=== PATIENT | male | born 1945 | race African-American/Black ===

== ENCOUNTER → 2017-06-12 | Outpatient (CLI) | payer MEDICARE, OTHER ==
[2017-06-12 11:00] LABS: HEMOGLOBIN 12.9 G/DL (13.3-17.7); MEAN PLATELET VOLUME 12.2 FL (7.4-10.4); RED BLOOD COUNT 5.17 10^6/uL (4.35-5.85); RED CELL DISTRIBUTION WIDTH 15.7 % (10.0-14.5); WHITE BLOOD COUNT 4.1 10^3/uL (4.3-11.0)
[2017-06-12 11:16] LABS: ALANINE AMINOTRANSFERASE 14 U/L (0-55); ALKALINE PHOSPHATASE 59 U/L (40-136); BILIRUBIN,TOTAL 0.4 MG/DL (0.1-1.0); BUN/CREATININE RATIO 10; CARBON DIOXIDE 29 MMOL/L (21-32); CHLORIDE 101 MMOL/L (98-107); CHOLESTEROL 150 MG/DL (< 200); CREATININE SERUM 0.97 MG/DL (0.60-1.30); GFR ESTIMATED > 60; GLUCOSE 97 MG/DL (70-105); HDL CHOLESTEROL 60 MG/DL (40-60); POTASSIUM 2.8 MMOL/L (3.6-5.0); SODIUM 141 MMOL/L (135-145); TOTAL PROTEIN 6.9 GM/DL (6.4-8.2); TRIGLYCERIDES 58 MG/DL (<150); VLDL CHOLESTEROL 12 MG/DL (5-40)
--- NOTE | 2017-06-12 11:47 | Diagnostic Imaging Report ---
INDICATION: Peripheral edema. FINDINGS: Hepatic flexure of the colon is superimposed between the liver and diaphragm. Heart size and pulmonary vascularity are normal. Lungs are clear. There are no effusions or pneumothoraces. IMPRESSION: No acute abnormalities in the chest. Dictated by: Dictated on workstation # [id number]
== END ==
LOC: RAD 10:35
PROVIDERS: ATTEND Family Medicine
DX: G30.9 Alzheimer's disease, unspecified (principal); F02.80 Dementia in other diseases classified elsewhere, unspecified severity, without behavioral disturbance, psychotic disturbance, mood disturbance, and anxiety; E78.5 Hyperlipidemia, unspecified; E03.9 Hypothyroidism, unspecified; R60.9 Edema, unspecified
CPT/HCPCS: 36415; 71046; 80053; 80061; 83880; 84443; 85027

== ENCOUNTER → 2017-06-26 | Outpatient (CLI) | payer MEDICARE, OTHER ==
--- NOTE | 2017-06-26 10:44 | Diagnostic Imaging Report ---
PROCEDURE: US right lower extremity venous. TECHNIQUE: Multiple real-time grayscale images were obtained over the right lower extremity in various projections. Additional duplex Doppler and color Doppler images were also obtained. INDICATION: Right leg swelling. EXAMINATION: Grayscale and color Doppler evaluation of the deep veins of the right lower extremity were performed with waveform analysis. FINDINGS: Continuous venous flow is present. No intraluminal filling defect is identified. There is normal compressibility and response to augmentation. No abnormal perivascular fluid collection is identified. IMPRESSION: No ultrasound evidence of right lower extremity deep venous thrombosis. Dictated by: Dictated on workstation # [id number]
--- NOTE | 2017-06-26 10:55 | Diagnostic Imaging Report ---
PROCEDURE: CT head without contrast. TECHNIQUE: Multiple contiguous axial images were obtained through the brain without the use of intravenous contrast. INDICATION: Altered mental status. Comparison is made with prior CT brain from 07/05/2011. FINDINGS: Since the prior study, there has been some increase in ventricular prominence particularly involving the lateral and third ventricles. Sulci are prominent as well and findings may be on the basis of progressing cerebral atrophy. Normal pressure hydrocephalus cannot be entirely excluded. There is no midline shift. No sulcal effacement is seen. No acute intra-axial or extra-axial hemorrhage is detected. Cisterns are patent. Visualized paranasal sinuses are clear. IMPRESSION: Increasing prominence of the ventricles and sulci when compared with prior CT from June 2011, considerations above. No acute intracranial hemorrhage is detected. Dictated by: Dictated on workstation # [id number]
== END ==
LOC: RAD 10:05
PROVIDERS: ATTEND Family Medicine
DX: M79.89 Other specified soft tissue disorders (principal); R41.82 Altered mental status, unspecified
CPT/HCPCS: 70450

== ENCOUNTER → 2017-08-02 | Outpatient (CLI) | payer MEDICARE, OTHER ==
[~2017-08-02] MED LIST: CHOL20003 PO; DONE10TA41 PO; KCL 20 MEQ POWDER FOR ORAL SOLUTION PO ONE; LEVO88TA54 PO; MEMA28CA PO; POTA10TA10 PO; POTA40LI PO; POTASSIUM CL 10 MEQ/50 ML IVPB (PRE-MIX) IV SCH; PRAV40TA2 PO
[2017-08-02 13:00] VITALS: BP 144/78
--- NOTE | 2017-08-07 09:31 | Physician Query-Final Dx ---
JAMES PADRON 08/07/17 0931: Clinic Account Progress/Dx Physician Query: Please give a diagnosis for the KCL 60 mg treatment thank you Date of Service Aug 02, 2017 at 12:49 BORIS KING DO 08/07/17 1234: Clinic Account Progress/Dx DIAGNOSIS: Diagnosis Hypokalemia severe JAMES PADRON Aug 07, 2017 09:31 BORIS KING DO Aug 07, 2017 12:34
== END ==
LOC: SDC 12:49
PROVIDERS: ATTEND Family Medicine
DX: E87.6 Hypokalemia (principal)
CPT/HCPCS: 99211

== ENCOUNTER 2017-08-03 05:17 | Inpatient (IN) | payer MEDICARE, OTHER ==
[~2017-08-03] VITALS: Ht 170.2 cm; Wt 78.0 kg
--- OUTSIDE RECORDS SUMMARY | 2017-08-03 05:23 | XMS REPORT | Continuity of Care Document ---
Author Author [facility] Organization [facility] Address Unknown Phone Unavailable Allergies There is no data. Medications There is no data. 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 06/12/2017 ALLAN HOWARD MD Ot 787.02 NAUSEA ALONE 06/12/2017 GELLENDER DO, BORIS Yuen Ot 573.8 LIVER DISORDERS NEC 06/12/2017 GELLENDER DO, BORIS Yuen Ot E03.9 HYPOTHYROIDISM, UNSPECIFIED 06/12/2017 GELLENDER DO, BORIS Yuen Ot E78.2 MIXED HYPERLIPIDEMIA 06/13/2017 GELLENDER DO, BORIS Yuen Ot E03.9 HYPOTHYROIDISM, UNSPECIFIED 06/13/2017 GELLENDER DO, BORIS Yuen Ot E78.5 HYPERLIPIDEMIA, UNSPECIFIED 06/13/2017 GELLENDER DO, BORIS Yuen Ot F02.80 DEMENTIA IN OTH DISEASES CLASSD ELSWHR W 06/13/2017 GELLENDER DO, BORIS Yuen Ot G30.9 ALZHEIMER'S DISEASE, UNSPECIFIED 06/13/2017 GELLENDER DO, BORIS Yuen Ot R60.9 EDEMA, UNSPECIFIED 06/27/2017 GELLENDER DO, BORIS Yuen Ot M79.89 OTHER SPECIFIED SOFT TISSUE DISORDERS 06/27/2017 GELLENDER DOBORIS Ot R41.82 ALTERED MENTAL STATUS, UNSPECIFIED 07/19/2017 GELLENDER DO, BORIS Yuen Ot M79.89 OTHER SPECIFIED SOFT TISSUE DISORDERS 07/19/2017 GELLENDER DO, BORIS Yuen Ot R41.82 ALTERED MENTAL STATUS, UNSPECIFIED 07/21/2017 GELLENDER DO, BORIS Yuen Ot E03.9 HYPOTHYROIDISM, UNSPECIFIED 07/21/2017 GELLENDER DO, BORIS Yuen Ot E78.5 HYPERLIPIDEMIA, UNSPECIFIED 07/21/2017 GELLENDER DO, BORIS Yuen Ot F02.80 DEMENTIA IN OTH DISEASES CLASSD ELSWHR W 07/21/2017 BORIS KING DO Ot G30.9 ALZHEIMER'S DISEASE, UNSPECIFIED 07/21/2017 BORIS KING DO Ot R60.9 EDEMA, UNSPECIFIED Procedures There is no data. Results Test Result Range Automated blood complete blood count (hemogram) panel - 06/12/17 10:53 Blood leukocytes automated count (number/volume) 4.1 10*3/uL 4.3-11.0 Blood erythrocytes automated count (number/volume) 5.17 10*6/uL 4.35-5.85 Venous blood hemoglobin measurement (mass/volume) 12.9 g/dL 13.3-17.7 Blood hematocrit (volume fraction) 43 % 40-54 Automated erythrocyte mean corpuscular volume 84 [foz_us] 80-99 Automated erythrocyte mean corpuscular hemoglobin (mass per erythrocyte) 25 pg 25-34 Automated erythrocyte mean corpuscular hemoglobin concentration measurement ( mass/volume) 30 g/dL 32-36 Automated erythrocyte distribution width ratio 15.7 % 10.0-14.5 Automated blood platelet count (count/volume) 166 10*3/uL 130-400 Automated blood platelet mean volume measurement 12.2 [foz_us] 7.4-10.4 Comprehensive metabolic panel - 06/12/17 10:53 Serum or plasma sodium measurement (moles/volume) 141 mmol/L 135-145 Serum or plasma potassium measurement (moles/volume) 2.8 mmol/L 3.6-5.0 Serum or plasma chloride measurement (moles/volume) 101 mmol/L 98-107 Carbon dioxide 29 mmol/L 21-32 Serum or plasma anion gap determination (moles/volume) 11 mmol/L 5-14 Serum or plasma urea nitrogen measurement (mass/volume) 10 mg/dL 7-18 Serum or plasma creatinine measurement (mass/volume) 0.97 mg/dL 0.60-1.30 Serum or plasma urea nitrogen/creatinine mass ratio 10 NRG Serum or plasma creatinine measurement with calculation of estimated glomerular filtration rate > NRG Serum or plasma glucose measurement (mass/volume) 97 mg/dL 70-105 Serum or plasma calcium measurement (mass/volume) 9.0 mg/dL 8.5-10.1 Serum or plasma total bilirubin measurement (mass/volume) 0.4 mg/dL 0.1-1.0 Serum or plasma alkaline phosphatase measurement (enzymatic activity/volume) 59 U/L 40-136 Serum or plasma aspartate aminotransferase measurement (enzymatic activity/ volume) 17 U/L 5-34 Serum or plasma alanine aminotransferase measurement (enzymatic activity/volume ) 14 U/L 0-55 Serum or plasma protein measurement (mass/volume) 6.9 g/dL 6.4-8.2 Serum or plasma albumin measurement (mass/volume) 4.0 g/dL 3.2-4.5 Lipid 1996 panel - 06/12/17 10:53 Serum or plasma triglyceride measurement (mass/volume) 58 mg/dL <150 Serum or plasma cholesterol measurement (mass/volume) 150 mg/dL < 200 Serum or plasma cholesterol in HDL measurement (mass/volume) 60 mg/ dL 40-60 Cholesterol in LDL [mass/volume] in serum or plasma by direct assay 63 mg/dL 1-129 Serum or plasma cholesterol in VLDL measurement (mass/volume) 12 mg/ dL 5-40 Serum or plasma lithium measurement (moles/volume) - 06/12/17 10:53 BNP level 23.1 pg/mL <100.0 THYROID STIMULATING HORMONE - 06/12/17 10:53 THYROID STIMULATING HORMONE 2.73 u[iU]/mL 0.35-4.94 Encounters ACCT No. Visit Date/Time Discharge Status Pt. Type Provider Facility Loc./Unit Complaint [id number] 06/26/2017 10:05:00 06/26/2017 23:59:59 CLS Outpatient BORIS KING DO [facility] RAD RIGHT LEG SWELLING, ACUTE MENTAL STATUS CHANGE [id number] 06/12/2017 10:35:00 06/12/2017 23:59:59 CLS Outpatient BORIS KING DO [facility] RAD EDEMA,ALZHIMERS, HYPOTHYROID, [id number] 11/08/2012 08:58:00 11/08/2012 23:59:59 CLS Outpatient BORIS KING DO [facility] RAD LESION IN LIVER [id number] 11/05/2012 08:08:00 11/05/2012 23:59:59 CLS Outpatient LEE CAMARENA, ALLAN [facility] RAD PITUITARY ADENOMA,NAUSEA
[2017-08-03] MEDS ORDERED: LACTATED RINGERS 1,000 ML IV ONE (05:34)
--- NOTE | 2017-08-03 05:41 | ED General ---
General Stated Complaint: ISSUES Source of Information: Patient, Family (daughter) (MICHAEL PARKS) History of Present Illness Date Seen by Provider: Aug 03, 2017 Time Seen by Provider: 05:19 Initial Comments Patient presents to the ER by private conveyance with his family and a chief complaint that he isn't having diarrheal disease past couple months. He is not having any nausea or fevers or chills. Because of this recent lab results show that his potassium has been very low as low as 1.8 according to the daughter. He is taking some oral potassium and not tolerating it very well and Dr. King had ordered outpatient infusions of potassium at the surgery center yesterday. Unfortunately they were unable after several hours to establish IV access so they let him go home with oral potassium. Dr. King asked that the patient come to the ER to have IV access established and potassium given. The Patient has a history of Parkinson's and dementia. He is incontinent of bowel and bladder and this morning when changing his brief the daughter noted that he only had a small amount of oozing diarrhea. She thinks that he is so dehydrated and is not able to produce any more stool. They have been using Imodium 2 bottles in the last few weeks without ability to slow down the diarrhea. (MICHAEL PARKS) Allergies and Home Medications Allergies Coded Allergies: pineapple (Verified Allergy, Unknown, 08/02/17) Constitutional: see HPI (review of systems is limited secondary to patient's dementia.), No chills, No fever EENTM: No ear pain, No epistaxis, No nose congestion Respiratory: No cough, No short of breath, No wheezing Cardiovascular: No chest pain, No palpitations, No syncope Gastrointestinal: No abdominal pain, No constipation, diarrhea, No nausea, No vomiting Genitourinary: No discharge, No dysuria Musculoskeletal: No back pain, No joint pain Skin: No pruritus, No rash Psychiatric/Neurological: Denies Headache, Denies Numbness, Denies Paresthesia (MICHAEL PARKS) Past Lzzbnmi-Bpqqjx-Pczlbe Hx Patient Social History Alcohol Use: Past History Recreational Drug Use: No Smoking Status: Never a Smoker Recent Foreign Travel: No Contact w/Someone Who Travel: No Recent Hopitalizations: No (MICHAEL PARKS) Immunizations Up To Date Tetanus Booster (TDap): Unknown PED Vaccines UTD: No (MICHAEL PARKS) Seasonal Allergies Seasonal Allergies: No (MICHAEL PARKS) Surgeries Surgeries: Vasectomy (MICHAEL PARKS) Neurological Neurological Disorders: Dementia, Parkinson's Disease (MICHAEL PARKS) Reproductive System Hx Reproductive Disorders: No (MICHAEL PARKS) Physical Exam Vital Signs Vital Signs - First Documented 08/03/17 05:40 Temp 98.4 Pulse 72 Resp 16 B/P (MAP) 137/97 (110) Pulse Ox 97 O2 Delivery Room Air (BIENVENIDO AMIN MD) Vital Signs Capillary Refill : (MICHAEL PARKS) General Appearance: No Apparent Distress, WD/WN Eyes: Bilateral Eye Normal Inspection, Bilateral Eye PERRL, Bilateral Eye EOMI HEENT: PERRL/EOMI, Normal ENT Inspection, Pharynx Normal (all mucosa is dry) Respiratory: Chest Non Tender, Lungs Clear, Normal Breath Sounds, No Accessory Muscle Use, No Respiratory Distress Cardiovascular: Regular Rate, Rhythm, No Edema, No Gallop, Normal Peripheral Pulses Gastrointestinal: Normal Bowel Sounds, Non Tender, Soft Neurologic/Psychiatric: Alert, Other (oriented to person; flat affect) Skin: Normal Color, Warm/Dry (MICHAEL PARKS) Progress/Results/Core Measures Suspected Sepsis SIRS Temperature: Pulse: Respiratory Rate: Laboratory Tests 08/03/17 05:40: White Blood Count 5.1 Blood Pressure / Mean: Laboratory Tests 08/03/17 05:40: Platelet Count 171 (MICHAEL PARKS) Results/Orders Lab Results Laboratory Tests Test 08/03/17 05:40 Range/Units White Blood Count 5.1 4.3-11.0 10^3/uL Red Blood Count 4.33 L 4.35-5.85 10^6/uL Hemoglobin 11.4 L 13.3-17.7 G/DL Hematocrit 36 L 40-54 % Mean Corpuscular Volume 83 80-99 FL Mean Corpuscular Hemoglobin 26 25-34 PG Mean Corpuscular Hemoglobin Concent 32 32-36 G/DL Red Cell Distribution Width 15.9 H 10.0-14.5 % Platelet Count 171 130-400 10^3/uL Mean Platelet Volume 12.5 H 7.4-10.4 FL Neutrophils (%) (Auto) 62 42-75 % Lymphocytes (%) (Auto) 27 12-44 % Monocytes (%) (Auto) 9 0-12 % Eosinophils (%) (Auto) 1 0-10 % Basophils (%) (Auto) 0 0-10 % Neutrophils # (Auto) 3.2 1.8-7.8 X 10^3 Lymphocytes # (Auto) 1.4 1.0-4.0 X 10^3 Monocytes # (Auto) 0.5 0.0-1.0 X 10^3 Eosinophils # (Auto) 0.1 0.0-0.3 10^3/uL Basophils # (Auto) 0.0 0.0-0.1 10^3/uL Erythrocyte Sedimentation Rate 30 0-30 MM/HR Sodium Level 147 H 135-145 MMOL/L Potassium Level 1.9 *L 3.6-5.0 MMOL/L Chloride Level 94 L 98-107 MMOL/L Carbon Dioxide Level 34 H 21-32 MMOL/L Anion Gap 19 H 5-14 MMOL/L Blood Urea Nitrogen 5 L 7-18 MG/DL Creatinine 0.86 0.60-1.30 MG/DL Estimat Glomerular Filtration Rate > 60 BUN/Creatinine Ratio 6 Glucose Level 104 70-105 MG/DL Calcium Level 9.0 8.5-10.1 MG/DL Phosphorus Level 4.2 2.3-4.7 MG/DL Magnesium Level 2.4 1.8-2.4 MG/DL Total Bilirubin 0.6 0.1-1.0 MG/DL Aspartate Amino Transf (AST/SGOT) 54 H 5-34 U/L Alanine Aminotransferase (ALT/SGPT) 34 0-55 U/L Alkaline Phosphatase 40 40-136 U/L C-Reactive Protein High Sensitivity 0.58 H 0.00-0.50 MG/DL Total Protein 6.3 L 6.4-8.2 GM/DL Albumin 3.6 3.2-4.5 GM/DL (BIENVENIDO AMIN MD) My Orders Orders - BIENVENIDO AMIN MD Ns Iv 1000 Ml (Sodi... W/Potassium Chlor (08/03/17 06:30) Ns W/Kcl 40 Meq/L (Ns Iv W/Kcl 40 Meq/L) (08/03/17 06:35) Ekg Tracing (08/03/17 06:40) (BIENVENIDO AMIN MD) Medications Given in ED Current Medications Medications Dose Ordered Sig/Ruddy Route Start Time Stop Time Status Last Admin Dose Admin Lactated Ringer's 1,000 ml @ 0 mls/hr Q0M ONCE IV 08/03/17 05:34 08/03/17 05:36 DC 08/03/17 05:50 0 MLS/HR Potassium Chloride/Sodium Chloride 1,000 ml @ ud STK-MED ONCE IV 08/03/17 06:35 08/03/17 06:38 DC 08/03/17 06:48 250 MLS/HR (BIENVENIDO AMIN MD) Vital Signs/I&O Vital Sign - Last 12Hours 08/03/17 05:40 Temp 98.4 Pulse 72 Resp 16 B/P (MAP) 137/97 (110) Pulse Ox 97 O2 Delivery Room Air (BIENVENIDO AMIN MD) Vital Signs/I&O Capillary Refill : (MICHAEL PARKS) Progress Note : Time: 05:41 Progress Note IV established and left forearm. Will obtain lab. Start with a liter of lactated Ringer's. (MICHAEL PARKS) Progress Note : Time: 06:50 Progress Note Care of this patient was assumed from Dr. Parks at shift change. Patient was receiving LR and completed about 500 mL at the time labs were reviewed. At that time patient was noted to be severely hypokalemic. EKG was ordered and fluids were changed to normal saline +40 MG every of potassium at 250 mL per hour. Patient will be admitted for potassium replacement. He will also be started on probiotics, and Flagyl will be continued. Stool studies have been ordered for the floor. Patient is being admitted as an inpatient anticipating he will need to her 3 days to ensure stability of electrolytes and diarrhea. (BIENVENIDO AMIN MD) ECG Initial ECG Impression Date: Aug 03, 2017 Initial ECG Impression Time: 06:53 Initial ECG Rate: 61 Initial ECG Rhythm: Normal Sinus Initial ECG Intervals: QT Initial ECG Intervals Prolonged QTC of 510 Comment Normal sinus rhythm with no ST elevation or depression. Prolonged QT interval noted. No axis deviation. (BIENVENIDO AMIN MD) Transfer of Care Transfer of Care Time: 06:06 Care transferred to: Dr. Smith (MICHAEL PARKS) Departure Communication (Admissions) Time/Spoke to Admitting Phy: 06:[address] King (BIENVENIDO AMIN MD) Impression Impression: Primary Impression: Hypokalemia Additional Impression: Diarrhea Qualified Codes: R19.7 - Diarrhea, unspecified Disposition: ADMITTED INPATIENT Condition: Improved Admissions Decision to Admit Reason: Admit from ER (General) Decision to Admit/Date: Aug 03, 2017 Time/Decision to Admit Time: 06:35 (BIENVENIDO AMIN MD) Departure-Patient Inst. Referrals: BORIS KING DO (PCP/Family) Primary Care Physician MICHAEL PARKS Aug 03, 2017 05:41 BIENVENIDO AMIN MD Aug 03, 2017 06:56
[2017-08-03 05:48] LABS: BASOPHILS % (AUTO) 0 % (0-10); EOSINOPHILS # (AUTO) 0.1 10^3/uL (0.0-0.3); EOSINOPHILS % (AUTO) 1 % (0-10); HEMATOCRIT 36 % (40-54); HEMOGLOBIN 11.4 G/DL (13.3-17.7); LYMPHOCYTES # (AUTO) 1.4 X 10^3 (1.0-4.0); LYMPHOCYTES % (AUTO) 27 % (12-44); MEAN CORPUSCULAR HEMOGLOBIN 26 PG (25-34); MEAN CORPUSCULAR HGB CONC 32 G/DL (32-36); MEAN CORPUSCULAR VOLUME 83 FL (80-99); MEAN PLATELET VOLUME 12.5 FL (7.4-10.4); MONOCYTES # (AUTO) 0.5 X 10^3 (0.0-1.0); MONOCYTES % (AUTO) 9 % (0-12); NEUTROPHILS # (AUTO) 3.2 X 10^3 (1.8-7.8); NEUTROPHILS % (AUTO) 62 % (42-75); PLATELET COUNT 171 10^3/uL (130-400); RED BLOOD COUNT 4.33 10^6/uL (4.35-5.85); RED CELL DISTRIBUTION WIDTH 15.9 % (10.0-14.5); WHITE BLOOD COUNT 5.1 10^3/uL (4.3-11.0)
[2017-08-03 06:05] LABS: ERYTHROCYTE SEDIMENTATION RATE 30 MM/HR (0-30)
[2017-08-03 06:09] LABS: ALANINE AMINOTRANSFERASE 34 U/L (0-55); ALBUMIN 3.6 GM/DL (3.2-4.5); ALKALINE PHOSPHATASE 40 U/L (40-136); BILIRUBIN,TOTAL 0.6 MG/DL (0.1-1.0); BUN/CREATININE RATIO 6; CARBON DIOXIDE 34 MMOL/L (21-32); CHLORIDE 94 MMOL/L (98-107); CREATININE SERUM 0.86 MG/DL (0.60-1.30); GFR ESTIMATED > 60; GLUCOSE 104 MG/DL (70-105); MAGNESIUM 2.4 MG/DL (1.8-2.4); PHOSPHORUS 4.2 MG/DL (2.3-4.7); SODIUM 147 MMOL/L (135-145); TOTAL PROTEIN 6.3 GM/DL (6.4-8.2)
[2017-08-03 06:20] LABS: POTASSIUM 1.9 MMOL/L (3.6-5.0)
[2017-08-03] MEDS ORDERED: POTASSIUM CHLORIDE INJ 40 MEQ in NS IV 1000 ML 1,000 ML IV SCH (06:30)
[2017-08-03] MEDS ORDERED: NS W/KCL 40 MEQ/L 1,000 ML IV ONE (06:35)
--- OUTSIDE RECORDS SUMMARY | 2017-08-03 07:13 | XMS REPORT | Continuity of Care Document ---
Author Author [facility] Organization [facility] Address Unknown Phone Unavailable Allergies There is [...] 10:53 THYROID STIMULATING HORMONE 2.73 u[iU]/mL 0.35-4.94 Complete blood count (CBC) with automated white blood cell (WBC) differential - 08/03/17 05:40 Blood leukocytes automated count (number/volume) 5.1 10*3/uL 4.3-11.0 Blood erythrocytes automated count (number/volume) 4.33 10*6/uL 4.35-5.85 Venous blood hemoglobin measurement (mass/volume) 11.4 g/dL 13.3-17.7 Blood hematocrit (volume fraction) 36 % 40-54 Automated erythrocyte mean corpuscular volume 83 [foz_us] 80-99 Automated erythrocyte mean corpuscular hemoglobin (mass per erythrocyte) 26 pg 25-34 Automated erythrocyte mean corpuscular hemoglobin concentration measurement ( mass/volume) 32 g/dL 32-36 Automated erythrocyte distribution width ratio 15.9 % 10.0-14.5 Automated blood platelet count (count/volume) 171 10*3/uL 130-400 Automated blood platelet mean volume measurement 12.5 [foz_us] 7.4-10.4 Automated blood neutrophils/100 leukocytes 62 % 42-75 Automated blood lymphocytes/100 leukocytes 27 % 12-44 Blood monocytes/100 leukocytes 9 % 0-12 Automated blood eosinophils/100 leukocytes 1 % 0-10 Automated blood basophils/100 leukocytes 0 % 0-10 Blood neutrophils automated count (number/volume) 3.2 10*3 1.8-7.8 Blood lymphocytes automated count (number/volume) 1.4 10*3 1.0-4.0 Blood monocytes automated count (number/volume) 0.5 10*3 0.0-1.0 Automated eosinophil count 0.1 10*3/uL 0.0-0.3 Automated blood basophil count (count/volume) 0.0 10*3/uL 0.0-0.1 Erythrocyte sedimentation rate by westergren method - 08/03/17 05:40 Erythrocyte sedimentation rate by westergren method 30 mm 0-30 Comprehensive metabolic panel - 08/03/17 05:40 Serum or plasma sodium measurement (moles/volume) 147 mmol/L 135-145 Serum or plasma potassium measurement (moles/volume) 1.9 mmol/L 3.6-5.0 Serum or plasma chloride measurement (moles/volume) 94 mmol/L 98-107 Carbon dioxide 34 mmol/L 21-32 Serum or plasma anion gap determination (moles/volume) 19 mmol/L 5-14 Serum or plasma urea nitrogen measurement (mass/volume) 5 mg/dL 7-18 Serum or plasma creatinine measurement (mass/volume) 0.86 mg/dL 0.60-1.30 Serum or plasma urea nitrogen/creatinine mass ratio 6 NRG Serum or plasma creatinine measurement with calculation of estimated glomerular filtration rate > NRG Serum or plasma glucose measurement (mass/volume) 104 mg/dL 70-105 Serum or plasma calcium measurement (mass/volume) 9.0 mg/dL 8.5-10.1 Serum or plasma total bilirubin measurement (mass/volume) 0.6 mg/dL 0.1-1.0 Serum or plasma alkaline phosphatase measurement (enzymatic activity/volume) 40 U/L 40-136 Serum or plasma aspartate aminotransferase measurement (enzymatic activity/ volume) 54 U/L 5-34 Serum or plasma alanine aminotransferase measurement (enzymatic activity/volume ) 34 U/L 0-55 Serum or plasma protein measurement (mass/volume) 6.3 g/dL 6.4-8.2 Serum or plasma albumin measurement (mass/volume) 3.6 g/dL 3.2-4.5 Serum or plasma phosphate measurement (mass/volume) - 08/03/17 05:40 Serum or plasma phosphate measurement (mass/volume) 4.2 mg/dL 2.3-4.7 Magnesium - 08/03/17 05:40 Magnesium 2.4 mg/dL 1.8-2.4 Serum or plasma C reactive protein measurement (mass/volume) - 08/03/17 05:40 Serum or plasma C reactive protein measurement (mass/volume) 0.58 mg /dL 0.00-0.50 Encounters ACCT No. Visit Date/Time Discharge Status Pt. Type Provider Facility Loc./Unit Complaint [id number] 06/26/2017 10:05:00 06/26/2017 23:59:59 [facility] Outpatient BORIS KING DO [facility] RAD RIGHT LEG SWELLING, ACUTE MENTAL STATUS CHANGE [id number] 06/12/2017 10:35:00 06/12/2017 23:59:59 [facility] Outpatient BORIS KING DO [facility] RAD EDEMA,ALZHIMERS, HYPOTHYROID, [id number] 11/08/2012 08:58:00 11/08/2012 23:59:59 [facility] Outpatient BORIS KING DO [facility] RAD LESION IN LIVER [id number] 11/05/2012 08:08:00 11/05/2012 23:59:59 [facility] Outpatient LEE CAMARENA, ALLAN [facility] RAD PITUITARY ADENOMA,NAUSEA [id number] 08/03/2017 05:50:00 Document Registration
[2017-08-03 08:00] VITALS: BP 170/84
[2017-08-03] MEDS ORDERED: CATHETER FLUSH 10 ML SYR IV PRN (08:00)
[2017-08-03] MEDS ORDERED: CHOL20003 PO (08:07)
[2017-08-03] MEDS ORDERED: LEVO88TA54 PO (08:07)
[2017-08-03] MEDS ORDERED: MEMA28CA PO (08:07)
[2017-08-03] MEDS ORDERED: PRAV40TA2 PO (08:07)
[2017-08-03] MEDS ORDERED: DONE10TA41 PO (08:07)
[2017-08-03] MEDS ORDERED: POTA40LI PO (08:08)
--- NOTE | 2017-08-03 08:22 | History & Physicial ---
History of Present Illness History of Present Illness Reason for visit/HPI Patient has a potassium of 1.8 Yesterday patient went to outpatient surgery and unable to get a midline more IV going to give potassium. Patient has been having diarrhea for the last month. Patient dehydrated. Patient failed outpatient treatment. Patient physically has deteriorated. Patient not using a walker to get around and previous to this was able to get around without 1. Patient not eating. Patient has Alzheimer's and Parkinson's disease. 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 Date of Admission Aug 03, 2017 at 06:40 Time Seen by Provider: 08:20 I consulted on this patient on 08/03/17 08:17 Attending Physician Fred King DO Admitting Physician Fred King DO Consult Allergies and Home Medications Allergies Coded Allergies: pineapple (Verified Allergy, Unknown, 08/02/17) Home Medications Cholecalciferol (Vitamin D3) 2,000 Unit Capsule, 2,000 UNIT PO DAILY, (Reported) Donepezil HCl 10 Mg Tablet, 20 MG PO HS, (Reported) TAKES 2 (10MG) TABLETS Levothyroxine Sodium 88 Mcg Tablet, 88 MCG PO DAILY, (Reported) Memantine HCl 28 Mg Cap.spr.24, 28 MG PO HS, (Reported) Pravastatin Sodium 40 Mg Tablet, 40 MG PO HS, (Reported) Past Fopdeuh-Zshzun-Mmikic Hx Patient Social History Marrital Status: single Employed/Student: unemployed Alcohol Use: Past History Recreational Drug Use: No Smoking Status: Never a Smoker 2nd Hand Smoke Exposure: No Recent Foreign Travel: No Contact w/other who traveled: No Recent Hopitalizations: No Recent Infectious Disease Expo: No Immunizations Up To Date Tetanus Booster (TDap): Unknown Pediatric: No Seasonal Allergies Seasonal Allergies: No Surgeries Yes Vasectomy Respiratory No Cardiovascular No Neurological Yes Dementia, Parkinson's Disease Reproductive System Hx Reproductive Disorders: No Gastrointestinal No Musculoskeletal No Endocrine History of Endocrine Disorders: No Cancer No Psychosocial History of Psychiatric Problem: No Integumentary History of Skin or Integumenta: No Blood Transfusions History of Blood Disorders: No Constitutional: malaise, weakness EENTM: no symptoms reported Respiratory: no symptoms reported Cardiovascular: no symptoms reported Gastrointestinal: other Genitourinary: no symptoms reported Physical Exam Vital Signs Vital Signs - First Documented 08/03/17 05:40 Temp 98.4 Pulse 72 Resp 16 B/P (MAP) 137/97 (110) Pulse Ox 97 O2 Delivery Room Air Capillary Refill : Less Than 3 Seconds General Appearance: No Apparent Distress, Thin Eyes: Bilateral Eye Normal Inspection HEENT: Normal ENT Inspection Neck: Full Range of Motion, Normal Inspection Respiratory: Chest Non Tender, No Accessory Muscle Use, No Respiratory Distress Cardiovascular: Regular Rate, Rhythm, No Murmur Gastrointestinal: Non Tender, Soft Assessment/Plan Assessment and Plan Severe hypokalemia. Alzheimer's. Dementia. Severe diarrhea. Dehydration. Fail outpatient treatment and outpatient surgery Problems: Admission Diagnosis Reason for Inpatient Admission: Low potassium. Diarrhea. Physical decline FRED KING DO Aug 03, 2017 08:22
[2017-08-03] MEDS ORDERED: POTA10TA10 PO (09:28)
[2017-08-03] MEDS: KCL 20 MEQ POWDER FOR ORAL SOLUTION PO SCH ×2 (09:44→14:26)
[2017-08-03] MEDS: LACTOBACILLUS Acidoph/Bulgar (LACTINEX/FLORANEX) TAB PO SCH ×2 (09:46→17:35)
[2017-08-03] MEDS: metroNIDAZOLE 500 MG (FLAGYL) TAB PO SCH ×3 (09:46→17:35)
[2017-08-03] MEDS: NS W/KCL 40 MEQ/L 1,000 ML IV SCH ×3 (09:46→18:59)
--- NOTE | 2017-08-03 10:09 | Speech Therapy Progress Note ---
Therapy Progress Note Dysphagia consultation received and chart reviewed. Upon entrance, the clinician was met by the patient's RN. Per RN, the swallow study is not necessary and must have been automatically populated. At this time, the patient is struggling with confusion, therefore, the RN requested the swallow evaluation not occur. The RN stated she would cancel the consult from the patient's chart. Please reconsult if necessary. MOSES GARCIA Aug 03, 2017 10:09
[2017-08-03 12:00] VITALS: BP 129/74
[2017-08-03 16:10] VITALS: BP 134/84
[2017-08-03] MEDS ORDERED: INFLUENZA TRIvalent 2017-2018 0.5 ML/45 MCG SYR IM ONE (16:30)
--- NOTE | 2017-08-03 16:45 | Occ Therapy Progress Note ---
Therapy Progress Note 1635 At this time, RN with initiate cancelling OT due to patient's confusion and dementia, with no skilled OT needs identified. If his status should change, please reconsult OT. ROLANDO ADAN OT Aug 03, 2017 16:45
[2017-08-03] MEDS: ENOXAPARIN 40 MG/0.4 ML (LOVENOX) SYR SC SCH (17:28)
[2017-08-03 20:05] VITALS: BP 146/86
[2017-08-03] MEDS: ALPRAZolam 0.5 MG (XANAX) TAB PO PRN (20:30)
[2017-08-03] MEDS: SIMvastatin 20 MG (ZOCOR) TAB PO SCH (20:30)
[2017-08-03] MEDS: DONEPEZIL 10 MG (ARICEPT) TAB PO SCH (20:30)
[2017-08-03] MEDS ORDERED: NON-FORMULARY MEDICATION 1 EA EA (Pravastatin Sodium 40 MG) PO SCH (21:00)
[2017-08-04] VITALS (7 sets, daily range): BP systolic 127–168; BP diastolic 62–80
[2017-08-04] MEDS: metroNIDAZOLE 500 MG (FLAGYL) TAB PO SCH ×4 (00:07→17:29)
[2017-08-04] MEDS: NS W/KCL 40 MEQ/L 1,000 ML IV SCH (02:13)
[2017-08-04] MEDS: LEVOTHYROXINE 88 MCG (LEVOTHORID) TAB PO SCH (06:21)
[2017-08-04] MEDS: LACTOBACILLUS Acidoph/Bulgar (LACTINEX/FLORANEX) TAB PO SCH ×3 (06:21→17:29)
--- NOTE | 2017-08-04 07:10 | Progress Note (SOAP) ---
Subjective Time Seen by Provider: 07:10 Subjective/Events-last exam Hypokalemia. Diarrhea. Alzheimer's disease. Parkinson disease. Patient doing better. Patient did not have any diarrhea or last night. Blood tests are not on chart at this moment. Blood pressure elevated probably due to fluid overload little Objective Exam Vital Signs Date Time Temp Pulse Resp B/P (MAP) Pulse Ox O2 Delivery O2 Flow Rate FiO2 08/04/17 04:00 98.2 62 18 158/80 (106) 96 Room Air 08/04/17 01:43 152/74 (100) 08/04/17 01:00 65 08/04/17 00:00 98.9 72 18 168/78 (108) 98 Room Air 08/03/17 20:30 Room Air 08/03/17 20:05 98.0 74 14 146/86 (106) 96 Room Air 08/03/17 19:18 71 08/03/17 19:00 71 08/03/17 16:10 97.6 80 16 134/84 (101) 92 Room Air 08/03/17 15:19 95 Room Air 08/03/17 13:00 66 08/03/17 12:00 97.4 65 10 129/74 (92) 99 Room Air 08/03/17 08:00 98.4 63 22 170/84 (112) 98 Room Air 08/03/17 07:30 98.4 68 16 132/90 (110) 97 I & O 08/04/17 07:00 Intake Total 3400 ml Output Total 550 ml Balance 2850 ml Capillary Refill : Less Than 3 Seconds General Appearance: No Apparent Distress, WD/WN HEENT: Normal ENT Inspection Neck: Full Range of Motion Respiratory: Chest Non Tender, Lungs Clear, No Accessory Muscle Use, No Respiratory Distress Cardiovascular: Regular Rate, Rhythm Gastrointestinal: non tender, soft Results Lab Laboratory Tests 08/03/17 08:42: Lactic Acid Level 1.57 08/03/17 14:30: Stool Occult Blood Immunoassay NEGATIVE Microbiology 08/03/17 C. difficile GDH Antigen & Toxins - Final, Resulted 08/03/17 Stool Culture, Resulted Pending Assessment/Plan Assessment/Plan Assess & Plan/Chief Complaint Hypokalemia. Diarrhea. Alzheimer's. Parkinson disease. Patient is get physical therapy facility to today. Patient pulled out IV last night Clinical Quality Measures Admission Status Admission Dx Severe hypokalemia. Alzheimer's. Dementia. Severe diarrhea. Dehydration. Fail outpatient treatment and outpatient surgery DVT/VTE Risk/Contraindication: Risk Factor Score Per Nursin RFS Level Per Nursing on Admit: 4+=Very High BORIS KING DO Aug 04, 2017 07:09
[2017-08-04 07:30] LABS: BASOPHILS % (AUTO) 0 % (0-10); EOSINOPHILS % (AUTO) 1 % (0-10); HEMATOCRIT 35 % (40-54); HEMOGLOBIN 10.9 G/DL (13.3-17.7); LYMPHOCYTES % (AUTO) 21 % (12-44); MEAN CORPUSCULAR HEMOGLOBIN 26 PG (25-34); MEAN CORPUSCULAR HGB CONC 31 G/DL (32-36); MEAN CORPUSCULAR VOLUME 83 FL (80-99); MEAN PLATELET VOLUME 12.1 FL (7.4-10.4); MONOCYTES # (AUTO) 0.4 X 10^3 (0.0-1.0); MONOCYTES % (AUTO) 8 % (0-12); NEUTROPHILS # (AUTO) 3.2 X 10^3 (1.8-7.8); NEUTROPHILS % (AUTO) 70 % (42-75); PLATELET COUNT 150 10^3/uL (130-400); RED BLOOD COUNT 4.22 10^6/uL (4.35-5.85); RED CELL DISTRIBUTION WIDTH 15.8 % (10.0-14.5); WHITE BLOOD COUNT 4.7 10^3/uL (4.3-11.0)
[2017-08-04 07:51] LABS: ALANINE AMINOTRANSFERASE 33 U/L (0-55); ALBUMIN 3.4 GM/DL (3.2-4.5); ALKALINE PHOSPHATASE 36 U/L (40-136); BILIRUBIN,TOTAL 0.5 MG/DL (0.1-1.0); BUN/CREATININE RATIO 4; CALCIUM 8.1 MG/DL (8.5-10.1); CARBON DIOXIDE 30 MMOL/L (21-32); CHLORIDE 109 MMOL/L (98-107); CREATININE SERUM 0.74 MG/DL (0.60-1.30); GFR ESTIMATED > 60; GLUCOSE 96 MG/DL (70-105); POTASSIUM 2.6 MMOL/L (3.6-5.0); SODIUM 152 MMOL/L (135-145); TOTAL PROTEIN 5.7 GM/DL (6.4-8.2)
[2017-08-04] MEDS ORDERED: KCL 10 MEQ TAB (MICRO K) PO SCH (08:20)
[2017-08-04] MEDS: D5W W/KCL 20 MEQ/L 1,000 ML IV SCH (08:29)
[2017-08-04] MEDS: VITAMIN D3 1,000 UNITS (CHOLECALCIFEROL) TABLET PO SCH (08:30)
[2017-08-04] MEDS: MEMANTINE 10 MG (NAMENDA) TABLET PO SCH ×2 (08:30→20:28)
[2017-08-04] MEDS ORDERED: KCL 20 MEQ POWDER FOR ORAL SOLUTION PO NR (08:45)
[2017-08-04] MEDS ORDERED: NON-FORMULARY MEDICATION 1 EA EA (Cholecalciferol (Vitamin D3) (Vitamin D3) 2,000 UNIT) PO SCH (09:00)
[2017-08-04 09:08] LABS: BILIRUBIN,URINE NEGATIVE (NEGATIVE); CLARITY,URINE CLEAR; COLOR,URINE YELLOW; GLUCOSE, URINE (UA) NEGATIVE (NEGATIVE); KETONES,URINE NEGATIVE (NEGATIVE); LEUKOCYTE ESTERASE ,URINE NEGATIVE (NEGATIVE); NITRITE,URINE NEGATIVE (NEGATIVE); PH,URINE 8 (5-9); PROTEIN,URINE NEGATIVE (NEGATIVE); UROBILINOGEN,URINE NORMAL (NORMAL)
[2017-08-04 09:31] LABS: BACTERIA,URINE NEGATIVE /HPF
[2017-08-04 11:18] LABS: BUN/CREATININE RATIO 4; CALCIUM 8.2 MG/DL (8.5-10.1); CARBON DIOXIDE 27 MMOL/L (21-32); CHLORIDE 109 MMOL/L (98-107); CREATININE SERUM 0.82 MG/DL (0.60-1.30); GFR ESTIMATED > 60; GLUCOSE 232 MG/DL (70-105); POTASSIUM 2.7 MMOL/L (3.6-5.0); SODIUM 148 MMOL/L (135-145)
--- NOTE | 2017-08-04 11:54 | Physical Therapy Evaluation ---
PT Evaluation-General Medical Diagnosis Admission Date Aug 03, 2017 at 06:40 Medical Diagnosis: Hypokalemia, diarrhea Onset Date: Aug 03, 2017 Therapy Diagnosis Therapy Diagnosis: Impaired functional mobility, strength, activity tolerance, confusion Height/Weight Height (Feet): 5 Height (Inches): 7.00 Weight (Pounds): 172 Weight (Ounces): 0.0 Precautions Precautions/Isolations: Fall Prevention, Standard Precautions Weight Bear Status Right Lower Extremity: Right Full Weight Bearing Left Lower Extremity: Left Full Weight Bearing Referral Physician: Fred Doherty DO Reason for Referral: Evaluation/Treatment Medical History Pertinent Medical History: Dementia, Parkinson's Additional Medical History Alzheimer's Disease Surgical hx: Vasectomy, Tumor of pituitary gland Current History Admitted to ER with low KCL. Reviewed History: Yes Social History Home: Single Level Current Living Status: Spouse Entry Into Home: Stairs With Railing PT Steps Into Home: 4 (descending) PT Steps Inside Home: 0 Pt is poor historian due to dementia. Pt nurse is also his daughter, so she is answering questions for him. Prior/Core FIM Prior Level of Function Functional [place] Measure 0=Not Assessed/NA 4=Minimal Assistance 1=Total Assistance 5=Supervision or Setup 2=Maximal Assistance 6=Modified [place] 3=Moderate Assistance 7=Complete [place] Bed Mobility: 5 Transfers (B,C,W/C) (FIM): 5 Gait: 5 Patient was ambulating some at home but it is unclear how much or what assistance. PT Evaluation-Current Subjective Pt is laying in bed pre tx and agrees to PT. Pt nurse who is also his daughter is present. Pain Numeric Pain Scale: 0-No Pain Location: No Pain Reported Pt/Family Goals Return home with assistance Objective Patient Orientation: Confused, Mumbles Attachments: IV ROM/Strength ROM Lower Extremities Grossly WFL raj with limited ER and IR of hip raj, L ankle DF limited compared to R ankle DF but still able to achieve neutral. Strength Lower Extremities Not assessed, patient would not follow directions. Neuromuscular (Tone, Coordination, Reflexes) NT Sensory Vision: Wears Glasses Hearing: Hard of hearing Sensation Lower Extremities Not assessed due to dementia Transfers Functional [place] Measure 0=Not Assessed/NA 4=Minimal Assistance 1=Total Assistance 5=Supervision or Setup 2=Maximal Assistance 6=Modified [place] 3=Moderate Assistance 7=Complete [place] Transfers (B, C, W/C) (FIM): 1 Scootin Rollin Supine to/from Sit: 4 Sit to/from Stand: 3 Total A required for scooting, mod A needed for sit to stand, min A required for supine to sit, and SBA needed for rolling. Pt does not respond well to verbal cues. Gait Mode of Locomotion: Walk Anticipated Mode of Locomotion: Walk Gait (FIM): 1 Distance (FIM): 1=up to 49 ft Distance: 25 feet x1 Gait Level of Assist: 4 Gait Persons Needed: 1 Gait Assistive Device: FWW Comments/Gait Description Pt leans excessively on the FWW and has minimal clearance with short steps during ambulation. Needs assist with guiding the walker. Stairs If not tested on admit;explain 88 Not safe to perform due to dementia Balance Sitting Static: Fair Sitting Dynamic: Fair Standing Static: Poor Standing Dynamic: Poor Treatment Pt performed bed mobility, gait training, and PROM testing. Assessment/Needs Pt exhibits poor response to verbal cues. Pt has poor balance and functional mobility. Pt will benefit from formal PT services to address impairments. Rehab Potential: Poor Post Rehab Potential-Barriers: PD, Alzheimer's disease, dementia Equipment Needs Toilet riser PT Short Term Goals Short Term Goals Time Frame: Aug 11, 2017 Transfers (B,C,W/C) (FIM): 5 Gait (FIM): 2 Gait Distance Comment: 50' Gait Level of Assist: 4 Gait Assistive Device: FWW PT Plan Problem List Problem List: Activity Tolerance, Functional Strength, Safety, Balance, Gait, Transfer, Bed Mobility, ROM Treatment/Plan Treatment Plan: Continue Plan of Care Treatment Plan: Bed Mobility, Education, Functional Activity [place], Functional Strength, Gait, Safety, Therapeutic Exercise, Transfers Treatment Duration: Aug 11, 2017 Frequency: 6 times per week Estimated Hrs Per Day: .25 hour per day (15-30 min) Patient and/or Family Agrees t: Yes Safety Risks/Education Patient Education: Gait Training, Transfer Techniques, Correct Positioning, Safety Issues Teaching Recipient: Patient Teaching Methods: Demonstration, Discussion Response to Teaching: Unable to Return Demonstration, Reinforcement Needed Discharge Recommendations Plan Pt will perform strength and activity tolerance training, functional mobility training, balance and education training, and gait and stair training in order to promote independence at home. Therapy D/C Recommendations: Home w/ Family Support Equpiment Recommendations-D/C: Toilet Riser Time/GCodes Time In: 1115 Time Out: 1135 Total Billed Treatment Time: 20 Total Billed Treatment 1 visit 20 min PATITO PIERRE PT Aug 04, 2017 11:54
[2017-08-04] MEDS: ENOXAPARIN 40 MG/0.4 ML (LOVENOX) SYR SC SCH (17:30)
[2017-08-04] MEDS: DONEPEZIL 10 MG (ARICEPT) TAB PO SCH (20:28)
[2017-08-04] MEDS: SIMvastatin 20 MG (ZOCOR) TAB PO SCH (20:29)
[2017-08-05] VITALS (7 sets, daily range): BP systolic 138–162; BP diastolic 63–87
[2017-08-05] MEDS: metroNIDAZOLE 500 MG (FLAGYL) TAB PO SCH ×5 (00:13→23:23)
[2017-08-05] MEDS: D5W W/KCL 20 MEQ/L 1,000 ML IV SCH ×2 (00:14→18:33)
[2017-08-05] MEDS: LACTOBACILLUS Acidoph/Bulgar (LACTINEX/FLORANEX) TAB PO SCH ×3 (06:14→18:33)
[2017-08-05] MEDS: LEVOTHYROXINE 88 MCG (LEVOTHORID) TAB PO SCH (06:14)
[2017-08-05] MEDS: MEMANTINE 10 MG (NAMENDA) TABLET PO SCH ×2 (08:01→20:27)
[2017-08-05] MEDS: VITAMIN D3 1,000 UNITS (CHOLECALCIFEROL) TABLET PO SCH (08:01)
[2017-08-05] MEDS: CHOLESTYRAMINE 4 GM (QUESTRAN LITE, PREVALITE) PKT PO SCH ×2 (11:36→20:27)
[2017-08-05] MEDS: KCL 20 MEQ TAB (K-DUR) PO SCH ×2 (11:44→18:33)
--- NOTE | 2017-08-05 12:31 | Progress Note-Hospitalist ---
Standard Progress Note Progress Notes/Assess & Plan Date Seen 08/05/17 Time Seen by Provider: 12:28 Assess & Plan/Chief Complaint The patient is a 71-year-old black male. His mother was an employee at the [employer] for many years. His gives the history. He apparently has had diarrhea and subsequent hypokalemia for a month or more. She states this began about the time he was started on a new medication for Parkinson's disease. This has subsequently been discontinued. He has had to have potassium supplements because of hypokalemia. He was to have done this as an outpatient but there was no venous access and he was admitted. His admission potassium was 1.5. His present potassium is 2.7. He was negative for Clostridium difficile. He is also suffering from dementia and does not speak much. Physical exam: He is alert but does not speak. Lungs are clear to auscultation. CV is regular without murmur. Abdomen is soft. Bowel sounds are hypoactive. There is no pedal edema. Impression: Severe hypokalemia. 2.Parkinson's disease. 3.dementia. Plan: Continue IV fluids with potassium. Add oral potassium as he is profoundly hypokalemic. Add Questran in an attempt to thicken stools. Labs Laboratory Tests 08/04/17 07:20 08/04/17 10:50 KATHRYN OCHOA MD Aug 05, 2017 12:31
--- NOTE | 2017-08-05 13:51 | Physical Therapy Daily Note ---
PT Daily Note-Current Subjective No complaints on arrival. Pt's family member is present on arrival. Mental Status Patient Orientation: Confused Transfers Functional [place] Measure 0=Not Assessed/NA 4=Minimal Assistance 1=Total Assistance 5=Supervision or Setup 2=Maximal Assistance 6=Modified [place] 3=Moderate Assistance 7=Complete IndependenceIRFPAI Quality Coding Scale 6 Independent with activity with or without an assistive device 5 Patient requires set up or clean up by helper. Patient completes activity by themselves 4 Supervision or touching assist (CGA). [place] provide cues , steadying assist 3 The helper provides less than half the effort to complete the activity 2 The helper provides more than half the effort to complete the activity 1 Dependent. The helper does all the effort to complete an activity 7 Patient refused to complete or attempt activity 9 The patient did not perform the activity before the current illness or injury 88 Not attempted due to Medical conditions or safety concerns Transfers (B, C, W/C) (FIM): 5 Sit to/from Stand: 5 Bed to/from Chair: 5 Weight Bearing Right Lower Extremity: Right Full Weight Bearing Left Lower Extremity: Left Full Weight Bearing Gait Training Distance (FIM): 3=150 ft Distance: 200ft Gait Level of Assist: 4 Gait Persons Needed: 1 Gait Assistive Device: FWW Exercises Supine Ex: LE Protocol Supine Reps: 15 Seated Therapy Exercises: LE Protocol Seated Reps: 15 Assessment Pt was able to ambulate 200ft today, with no evidence of fatigue or dyspnea. PT Short Term Goals Short Term Goals Time Frame: Aug 11, 2017 Transfers (B,C,W/C) (FIM): 5 Gait (FIM): 2 Gait Distance Comment: 50' Gait Level of Assist: 4 Gait Assistive Device: FWW PT Plan Treatment/Plan Treatment Plan: Continue Plan of Care Treatment Plan: Bed Mobility, Education, Functional Activity [place], Functional Strength, Gait, Safety, Therapeutic Exercise, Transfers Treatment Duration: Aug 11, 2017 Frequency: 6 times per week Estimated Hrs Per Day: .25 hour per day (15-30 min) Patient and/or Family Agrees t: Yes Time/GCodes Time In: 904 Time Out: 929 Total Billed Treatment Time: 25 Total Billed Treatment 1, gt 10, ex 15 RAFIQ SIDHU PT Aug 05, 2017 13:51
[2017-08-05] MEDS: ENOXAPARIN 40 MG/0.4 ML (LOVENOX) SYR SC SCH (16:27)
[2017-08-05] MEDS: ALPRAZolam 0.5 MG (XANAX) TAB PO PRN (16:27)
[2017-08-05] MEDS: DONEPEZIL 10 MG (ARICEPT) TAB PO SCH (20:27)
[2017-08-05] MEDS: SIMvastatin 20 MG (ZOCOR) TAB PO SCH (20:27)
[2017-08-06 04:00] VITALS: BP 166/80
[2017-08-06 05:13] VITALS: BP 166/80
[2017-08-06] MEDS: LACTOBACILLUS Acidoph/Bulgar (LACTINEX/FLORANEX) TAB PO SCH ×3 (06:08→18:16)
[2017-08-06] MEDS: KCL 20 MEQ TAB (K-DUR) PO SCH ×4 (06:08→21:12)
[2017-08-06] MEDS: LEVOTHYROXINE 88 MCG (LEVOTHORID) TAB PO SCH (06:08)
[2017-08-06] MEDS: metroNIDAZOLE 500 MG (FLAGYL) TAB PO SCH ×3 (06:08→18:16)
[2017-08-06 08:00] VITALS: BP 155/84
[2017-08-06] MEDS: MEMANTINE 10 MG (NAMENDA) TABLET PO SCH ×2 (09:00→21:12)
[2017-08-06] MEDS: VITAMIN D3 1,000 UNITS (CHOLECALCIFEROL) TABLET PO SCH (09:00)
[2017-08-06] MEDS: CHOLESTYRAMINE 4 GM (QUESTRAN LITE, PREVALITE) PKT PO SCH ×2 (09:02→21:12)
[2017-08-06 11:17] LABS: BUN/CREATININE RATIO 3; CALCIUM 8.5 MG/DL (8.5-10.1); CARBON DIOXIDE 26 MMOL/L (21-32); CHLORIDE 102 MMOL/L (98-107); CREATININE SERUM 0.78 MG/DL (0.60-1.30); GFR ESTIMATED > 60; GLUCOSE 130 MG/DL (70-105); SODIUM 142 MMOL/L (135-145)
[2017-08-06 11:28] LABS: POTASSIUM 2.3 MMOL/L (3.6-5.0)
[2017-08-06 11:35] VITALS: BP 130/73
[2017-08-06] MEDS: D5W W/KCL 20 MEQ/L 1,000 ML IV SCH (12:18)
--- NOTE | 2017-08-06 12:18 | Progress Note-Hospitalist ---
Standard Progress Note Progress Notes/Assess & Plan Date Seen 08/06/17 Time Seen by Provider: 12:17 Assess & Plan/Chief Complaint The patient's IV access was lost yesterday. He was continued on the previously ordered potassium chloride twice daily for a total of 40 mg per day. His potassium has fallen today from 2.7-2.3. His lot worker states that he has on the average of 3 bowel movements a day. She states that he was unable to keep his potassium up by oral supplementation at home. This would raise the question of a diarrhea on the basis of something such as a villous adenoma with potassium wasting or less likely because of renal wasting. Physical exam: He is being encouraged to eat by his lot worker. He did actually speak to me today. Lungs are clear to auscultation. CV is regular without murmur. Abdomen is soft without tenderness to palpation. Impression: Subacute diarrhea with potassium wasting. 2.dementia. 3.apparent Parkinson's disease. Labs Laboratory Tests 08/06/17 10:52 KATHRYN OCHOA MD Aug 06, 2017 12:18
[2017-08-06 15:28] VITALS: BP 125/78
[2017-08-06] MEDS: ENOXAPARIN 40 MG/0.4 ML (LOVENOX) SYR SC SCH (18:16)
[2017-08-06 20:39] VITALS: BP 158/72
[2017-08-06] MEDS: SIMvastatin 20 MG (ZOCOR) TAB PO SCH (21:12)
[2017-08-06] MEDS: DONEPEZIL 10 MG (ARICEPT) TAB PO SCH (21:12)
[2017-08-07] VITALS (7 sets, daily range): BP systolic 119–179; BP diastolic 66–84
[2017-08-07] MEDS: metroNIDAZOLE 500 MG (FLAGYL) TAB PO SCH ×5 (00:12→20:21)
[2017-08-07] MEDS: LACTOBACILLUS Acidoph/Bulgar (LACTINEX/FLORANEX) TAB PO SCH ×3 (06:37→17:07)
[2017-08-07] MEDS: LEVOTHYROXINE 88 MCG (LEVOTHORID) TAB PO SCH (06:37)
--- NOTE | 2017-08-07 07:29 | Progress Note (SOAP) ---
Subjective Time Seen by Provider: 07:20 Subjective/Events-last exam Spoke to patient's partner. Patient still having diarrhea. Potassium yesterday went down to 2.3 from 2.7. Potassium started 1.5. Stool cultures negative. Consult surgery for colonoscopy. Objective Exam Vital Signs Date Time Temp Pulse Resp B/P (MAP) Pulse Ox O2 Delivery O2 Flow Rate FiO2 08/07/17 04:10 97.4 80 18 152/81 (104) 97 Room Air 08/07/17 01:00 62 08/07/17 00:30 98.9 69 18 179/84 (115) 99 Room Air 08/06/17 20:39 97.5 75 18 158/72 (100) 99 Room Air 08/06/17 20:00 Room Air 08/06/17 19:00 64 08/06/17 15:28 98.6 72 18 125/78 (94) 95 Room Air 08/06/17 13:00 61 08/06/17 11:35 97.3 66 18 130/73 (92) 98 Room Air 08/06/17 08:00 97.5 67 18 155/84 (107) 95 Room Air 08/06/17 08:00 Room Air I & O 08/07/17 07:00 Intake Total 835 ml Balance 835 ml Capillary Refill : Less Than 3 Seconds General Appearance: No Apparent Distress, WD/WN HEENT: Normal ENT Inspection Neck: Full Range of Motion, Normal Inspection Respiratory: Chest Non Tender, Lungs Clear, No Accessory Muscle Use, No Respiratory Distress Cardiovascular: Regular Rate, Rhythm, No Murmur Gastrointestinal: non tender, soft Results Lab Laboratory Tests 08/06/17 10:52: Sodium Level 142, Potassium Level 2.3*L, Chloride Level 102, Carbon Dioxide Level 26, Anion Gap 14, Blood Urea Nitrogen 2L, Creatinine 0.78, Estimat Glomerular Filtration Rate > 60, BUN/Creatinine Ratio 3, Glucose Level 130H, Calcium Level 8.5 Microbiology 08/03/17 Cryptosporidium/Giardia - Final, Complete Assessment/Plan Assessment/Plan Assess & Plan/Chief Complaint Hypokalemia. Diarrhea. Alzheimer's. Parkinson disease. Patient is get physical therapy facility to today. Patient pulled out IV last night. . . Hypokalemia. Diarrhea. Alzheimer's. Parkinson disease. Patient still has a low potassium Clinical Quality Measures Admission Status Admission Dx Severe hypokalemia. Alzheimer's. Dementia. Severe diarrhea. Dehydration. Fail outpatient treatment and outpatient surgery DVT/VTE Risk/Contraindication: Risk Factor Score Per Nursin RFS Level Per Nursing on Admit: 4+=Very High BORIS KING DO Aug 07, 2017 07:29
[2017-08-07] MEDS: MEMANTINE 10 MG (NAMENDA) TABLET PO SCH ×2 (08:05→20:21)
[2017-08-07] MEDS: KCL 20 MEQ TAB (K-DUR) PO SCH ×4 (08:05→20:21)
[2017-08-07] MEDS: CHOLESTYRAMINE 4 GM (QUESTRAN LITE, PREVALITE) PKT PO SCH ×2 (08:05→20:21)
[2017-08-07] MEDS: VITAMIN D3 1,000 UNITS (CHOLECALCIFEROL) TABLET PO SCH (08:05)
[2017-08-07 08:30] LABS: BUN/CREATININE RATIO 4; CALCIUM 8.5 MG/DL (8.5-10.1); CARBON DIOXIDE 31 MMOL/L (21-32); CHLORIDE 102 MMOL/L (98-107); CREATININE SERUM 0.73 MG/DL (0.60-1.30); GFR ESTIMATED > 60; GLUCOSE 92 MG/DL (70-105); POTASSIUM 2.6 MMOL/L (3.6-5.0); SODIUM 140 MMOL/L (135-145)
[2017-08-07] MEDS ORDERED: MAGNESIUM CITRATE 300 ML BTL PO NR ×2 (08:45→14:00)
[2017-08-07] MEDS ORDERED: KCL 10 MEQ TAB (MICRO K) PO ONE (08:45)
--- NOTE | 2017-08-07 10:50 | Physical Therapy Daily Note ---
PT Daily Note-Current Subjective Patient is incontinent BM and urine. Family agrees to PT. Pain Numeric Pain Scale: 0-No Pain Location: No Pain Reported Mental Status Patient Orientation: Confused Transfers Functional [place] Measure 0=Not Assessed/NA 4=Minimal Assistance 1=Total Assistance 5=Supervision or Setup 2=Maximal Assistance 6=Modified [place] 3=Moderate Assistance 7=Complete IndependenceIRFPAI Quality Coding Scale 6 Independent with activity with or without an assistive device 5 Patient requires set up or clean up by helper. Patient completes activity by themselves 4 Supervision or touching assist (CGA). [place] provide cues , steadying assist 3 The helper provides less than half the effort to complete the activity 2 The helper provides more than half the effort to complete the activity 1 Dependent. The helper does all the effort to complete an activity 7 Patient refused to complete or attempt activity 9 The patient did not perform the activity before the current illness or injury 88 Not attempted due to Medical conditions or safety concerns Transfers (B, C, W/C) (FIM): 4 Scootin Rollin Supine to/from Sit: 4 Sit to/from Stand: 4 Bed to/from Chair: 4 Patient requires CGA for cues due to Dementia and inability to follow simple direction. Patient incontinent BM/urine and requires dependent assist to cleanse and change patient. Weight Bearing Right Lower Extremity: Right Full Weight Bearing Left Lower Extremity: Left Full Weight Bearing Gait Training Gait (FIM): 4 Distance (FIM): 3=150 ft Distance: 225' Gait Level of Assist: 4 Gait Persons Needed: 1 Gait Assistive Device: FWW slow, shuffle gait sequence/PT assist to advance FWW Assessment Patient is up in recliner with needs met. Plan dismissal to [place] this week. PT Short Term Goals Short Term Goals Time Frame: Aug 11, 2017 Transfers (B,C,W/C) (FIM): 5 Gait (FIM): 2 Gait Distance Comment: 50' Gait Level of Assist: 4 Gait Assistive Device: FWW PT Plan Treatment/Plan Treatment Plan: Continue Plan of Care Treatment Plan: Bed Mobility, Education, Functional Activity [place], Functional Strength, Gait, Safety, Therapeutic Exercise, Transfers Treatment Duration: Aug 11, 2017 Frequency: 6 times per week Estimated Hrs Per Day: .25 hour per day (15-30 min) Patient and/or Family Agrees t: Yes Time/GCodes Time In: 930 Time Out: 959 Total Billed Treatment Time: 29 Total Billed Treatment 1 visit FA 15 min GT 14 min MESSI QUINTERO PT Aug 07, 2017 10:50
[2017-08-07] MEDS: ENOXAPARIN 40 MG/0.4 ML (LOVENOX) SYR SC SCH ×2 (17:01→17:38)
--- NOTE | 2017-08-07 17:51 | Consultation ---
History of Present Illness History of Present Illness Patient Consulted On(jcarlos/time) 08/07/17 17:48 Date Seen by Provider: Aug 07, 2017 Time Seen by Provider: 17:48 Reason for Visit: Chronic diarrhea, hypokalemia, poor venous access History of Present Illness this gentleman has been admitted with chronic diarrhea requiring further evaluation. In addition, he has been profoundly hypokalemic and has very poor venous access. I've been asked to see him for consideration of colonoscopy and placing an Lqsekz-e-Pubb to optimize his venous access issue Allergies and Home Medications Allergies Coded Allergies: pineapple (Verified Allergy, Unknown, 08/02/17) Home Medications Cholecalciferol (Vitamin D3) 2,000 Unit Capsule, 2,000 UNIT PO DAILY, (Reported) Donepezil HCl 10 Mg Tablet, 20 MG PO HS, (Reported) TAKES 2 (10MG) TABLETS Levothyroxine Sodium 88 Mcg Tablet, 88 MCG PO DAILY, (Reported) Memantine HCl 28 Mg Cap.spr.24, 28 MG PO HS, (Reported) Potassium Chloride 40 Meq/15 Ml Liquid, 15 ML PO DAILY, (Reported) 8 DAY SUPPLY FILLED #120ML 08-02-17 Potassium Chloride 10 Meq Tablet.er, 10 MEQ PO UD, (Reported) FILLED 08-01-17 TAKE 4 TABS TWICE DAILY DAY 1 THEN 4 TABS DAILY X3 DAYS THEN 1 TAB DAILY THEREAFTER Pravastatin Sodium 40 Mg Tablet, 40 MG PO HS, (Reported) Patient Home Medication List Home Medication List Reviewed: Yes Past Csvgyvp-Ffsrsl-Wgnwwc Hx Patient Social History Alcohol Use: Past History Recreational Drug Use: No Smoking Status: Never a Smoker 2nd Hand Smoke Exposure: No Recent Foreign Travel: No Contact w/Someone Who Travel: No Recent Infectious Disease Expo: No Recent Hopitalizations: No Immunizations Up To Date Tetanus Booster (TDap): Unknown PED Vaccines UTD: No Seasonal Allergies Seasonal Allergies: No Surgeries History of Surgeries: Yes (VASECTOMY) Surgeries: Vasectomy Respiratory History of Respiratory Disorde: No Cardiovascular History of Cardiac Disorders: No Neurological History of Neurological Disord: Yes Neurological Disorders: Dementia, Parkinson's Disease Reproductive System Hx Reproductive Disorders: No Gastrointestinal History of Gastrointestinal Di: No Musculoskeletal History of Musculoskeletal Dis: No Endocrine History of Endocrine Disorders: Yes Cancer History of Cancer: No Psychosocial History of Psychiatric Problem: No Integumentary History of Skin or Integumenta: No Blood Transfusions History of Blood Disorders: No Review of Systems-General Constitutional: weakness EENTM: no symptoms reported Respiratory: no symptoms reported Cardiovascular: no symptoms reported Gastrointestinal: see HPI Genitourinary: no symptoms reported Skin: no symptoms reported Psychiatric/Neurological: Emotional Problems Physical Exam-General Problems Physical Exam Vital Signs Vital Signs - First Documented 08/03/17 05:40 Temp 98.4 Pulse 72 Resp 16 B/P (MAP) 137/97 (110) Pulse Ox 97 O2 Delivery Room Air Capillary Refill : Less Than 3 Seconds General Appearance: no apparent distress Cardiovascular: regular rate, rhythm Gastrointestinal: non tender, soft Rectal: deferred Extremities: normal inspection Neurologic/Psychiatric: depressed affect Skin: warm/dry Assessment/Plan Assessment/Plan Admission Diagnosis/Plan gentleman with chronic diarrhea requiring colonoscopy. Poor venous access. I have reviewed the details of colonoscopy and the technique of placing an Infuse- a-Port in the operating room. He does not appear to participate in conversation and his legal guardian, who was at the bedside expressed understanding the anticipated procedures. Admission Status: Inpatient Order (span 2 midnights) Clinical Quality Measures DVT/VTE Risk/Contraindication: Risk Factor Score Per Nursin RFS Level Per Nursing on Admit: 4+=Very High CHACHA MAHAN MD Aug 07, 2017 5:51 pm
[2017-08-07] MEDS: SIMvastatin 20 MG (ZOCOR) TAB PO SCH (20:21)
[2017-08-07] MEDS: DONEPEZIL 10 MG (ARICEPT) TAB PO SCH (20:21)
[2017-08-08 03:48] VITALS: BP 160/89
[2017-08-08] MEDS: metroNIDAZOLE 500 MG (FLAGYL) TAB PO SCH ×3 (06:25→17:48)
[2017-08-08] MEDS: LACTOBACILLUS Acidoph/Bulgar (LACTINEX/FLORANEX) TAB PO SCH ×3 (06:25→17:48)
[2017-08-08] MEDS: LEVOTHYROXINE 88 MCG (LEVOTHORID) TAB PO SCH (06:29)
[2017-08-08 06:45] LABS: BUN/CREATININE RATIO 4; CALCIUM 8.6 MG/DL (8.5-10.1); CARBON DIOXIDE 24 MMOL/L (21-32); CHLORIDE 106 MMOL/L (98-107); CREATININE SERUM 0.75 MG/DL (0.60-1.30); GFR ESTIMATED > 60; GLUCOSE 79 MG/DL (70-105); POTASSIUM 3.1 MMOL/L (3.6-5.0); SODIUM 142 MMOL/L (135-145)
--- NOTE | 2017-08-08 07:39 | Progress Note (SOAP) ---
Subjective Time Seen by Provider: 07:30 Subjective/Events-last exam Patient's potassium 3.1. Patient to have colonoscopy if potassium increases. Dementia. Parkinson disease. Patient doing better today but still has diarrhea yesterday Objective Exam Vital Signs Date Time Temp Pulse Resp B/P (MAP) Pulse Ox O2 Delivery O2 Flow Rate FiO2 08/08/17 03:48 99.3 73 16 160/89 (112) 100 Room Air 08/08/17 01:00 78 08/07/17 23:42 98.4 73 18 153/84 (107) 98 Room Air 08/07/17 20:00 Room Air 08/07/17 19:41 98.2 71 18 141/66 (91) 96 Room Air 08/07/17 19:00 67 08/07/17 16:33 97.5 73 18 154/83 (106) 96 Room Air 08/07/17 13:00 69 08/07/17 12:30 98.2 87 20 119/67 (84) 98 Room Air 08/07/17 08:22 97.2 64 16 146/84 (104) 98 Room Air 08/07/17 08:00 98 Room Air I & O 08/08/17 07:00 Intake Total 2870 ml Balance 2870 ml Capillary Refill : Less Than 3 Seconds General Appearance: No Apparent Distress, WD/WN HEENT: Normal ENT Inspection Neck: Normal Inspection Respiratory: Chest Non Tender, No Accessory Muscle Use, No Respiratory Distress Cardiovascular: Regular Rate, Rhythm, No Murmur Results Lab Laboratory Tests 08/07/17 08:05 08/07/17 13:49 08/08/17 05:31 Laboratory Tests 08/07/17 08:05: Sodium Level 140, Potassium Level 2.6L, Chloride Level 102, Carbon Dioxide Level 31, Anion Gap 7, Blood Urea Nitrogen 3L, Creatinine 0.73, Estimat Glomerular Filtration Rate > 60, BUN/Creatinine Ratio 4, Glucose Level 92, Calcium Level 8.5 08/07/17 13:49: Potassium Level 3.1L 08/08/17 05:31: Sodium Level 142, Potassium Level 3.1L, Chloride Level 106, Carbon Dioxide Level 24, Anion Gap 12, Blood Urea Nitrogen 3L, Creatinine 0.75, Estimat Glomerular Filtration Rate > 60, BUN/Creatinine Ratio 4, Glucose Level 79, Calcium Level 8.6 Microbiology 08/03/17 Cryptosporidium/Giardia - Final, Complete Assessment/Plan Assessment/Plan Assess & Plan/Chief Complaint Hypokalemia. Diarrhea. Alzheimer's. Parkinson disease. Patient is get physical therapy facility to today. Patient pulled out IV last night. . . Hypokalemia. Diarrhea. Alzheimer's. Parkinson disease. Patient still has a low potassium. . 08/08/17. Hypokalemia improving. Diarrhea. Alzheimer's. Parkinson disease area Patient to have colonoscopy if potassium increases Clinical Quality Measures Admission Status Admission Dx Severe hypokalemia. Alzheimer's. Dementia. Severe diarrhea. Dehydration. Fail outpatient treatment and outpatient surgery DVT/VTE Risk/Contraindication: Risk Factor Score Per Nursin RFS Level Per Nursing on Admit: 4+=Very High BORIS KING DO Aug 08, 2017 07:39
[2017-08-08] MEDS: NS IV 500 ML 500 ML IV SCH ×2 (08:02→09:07)
[2017-08-08] MEDS: KCL 20 MEQ TAB (K-DUR) PO SCH ×4 (08:02→20:32)
[2017-08-08] MEDS: POTASSIUM CL 10MEQ/50ML IVPB 50 ML IV SCH ×5 (08:02→09:28)
[2017-08-08] MEDS: VITAMIN D3 1,000 UNITS (CHOLECALCIFEROL) TABLET PO SCH (08:03)
[2017-08-08] MEDS: CHOLESTYRAMINE 4 GM (QUESTRAN LITE, PREVALITE) PKT PO SCH ×2 (08:03→20:32)
[2017-08-08] MEDS: MEMANTINE 10 MG (NAMENDA) TABLET PO SCH ×2 (08:03→20:32)
[2017-08-08] MEDS ORDERED: LACTATED RINGERS 1,000 ML IV PRN (08:27)
[2017-08-08] MEDS ORDERED: KCL 10 MEQ TAB (MICRO K) PO ONE ×3 (09:08→09:30)
--- NOTE | 2017-08-08 09:33 | Progress Note-Standard ---
Standard Progress Note Progress Notes/Assess & Plan Date Seen by Provider: Aug 08, 2017 Time Seen by Provider: 08:41 Progress/Assessment & Plan Hypokalemia persists. Bowel prep reported to be adequate. We'll proceed with placing an Yuhhvy-k-Eryd and performing colonoscopy. Final Diagnosis Recurrent diarrhea. Hypokalemia. CHACHA MAHAN MD Aug 08, 2017 09:33
--- NOTE | 2017-08-08 09:39 | Progress Note-Pre Operative ---
Pre-Operative Progress Note H&P Reviewed The H&P was reviewed, patient examined and no changes noted. Date Seen by Provider: Aug 08, 2017 Time Seen by Provider: 16:55 Date H&P Reviewed: Aug 08, 2017 Time H&P Reviewed: 09:38 Pre-Operative Diagnosis: Chronic diarrhea. Poor venous access CHACHA MAHAN MD Aug 08, 2017 09:39
[2017-08-08] MEDS ORDERED: LIDOCAINE PF 2% 5 ML (XYLOCAINE) VIAL ONE (11:00)
[2017-08-08] MEDS ORDERED: proPOfol 200 MG/20 ML (DIPRIVAN) VIAL IV ONE (11:00)
[2017-08-08] MEDS ORDERED: ONDANSETRON 4 MG/2 ML (SDV) Z0FRAN ONE (11:00)
[2017-08-08] MEDS ORDERED: fentaNYL INJECTION 100 MCG/2 ML AMP ONE (11:00)
[2017-08-08] MEDS ORDERED: SEVOFLURANE (ULTANE) 15 ML INHAL SOLN ONE ×2 (11:02→12:59)
[2017-08-08] MEDS ORDERED: BUP/EPI 0.5% 1:200,000 (SENSORCAINE) 30 ML VIAL ONE (11:34)
[2017-08-08] MEDS ORDERED: 0.9% SODIUM CHLORIDE PF INJ 20 ML VIAL ONE (11:34)
[2017-08-08] MEDS ORDERED: HEParin (CENTRAL IV FLUSH) 500 UNIT/5 ML SYR ONE ×2 (11:35→13:06)
[2017-08-08] MEDS: LACTATED RINGERS 1,000 ML IV SCH ×2 (12:18→15:11)
[2017-08-08] MEDS ORDERED: ceFAZolin 1,000 MG (ANCEF) VIAL ONE (12:26)
[2017-08-08 12:38] LABS: BUN/CREATININE RATIO 4; CALCIUM 8.8 MG/DL (8.5-10.1); CARBON DIOXIDE 24 MMOL/L (21-32); CHLORIDE 105 MMOL/L (98-107); CREATININE SERUM 0.73 MG/DL (0.60-1.30); GFR ESTIMATED > 60; GLUCOSE 78 MG/DL (70-105); POTASSIUM 3.6 MMOL/L (3.6-5.0); SODIUM 142 MMOL/L (135-145)
[2017-08-08] MEDS ORDERED: PHENYLEPHRINE 100 MCG/ML 10 ML (ANESTHESIA) SYR ONE (12:51)
--- NOTE | 2017-08-08 13:16 | Diagnostic Imaging Report ---
INDICATION: Groshong catheter placement. TOTAL FLUOROSCOPY TIME: 38 seconds. FINDINGS: Fluoroscopic guidance was provided during Groshong placement. The single image provided shows a right internal jugular venous approach with the tip in the right atrium. Evaluation for pneumothorax is suboptimal given the fluoroscopic modality. Please note, the interpreting radiologist was not present during the procedure. IMPRESSION: Fluoroscopic guidance was provided during Groshong placement. Dictated by: Dictated on workstation # [id number]
--- NOTE | 2017-08-08 13:41 | Operative Report ---
Operative Report Date of Procedure/Surgery Aug 08, 2017 Surgeon (s) CHACHA MAHAN MD Retail Warehouse Supervisor (s): N/A Post-Operative Diagnosis Incomplete bowel preparation Procedure Performed Zyhlrf-e-Ottu placement Incomplete colonoscopy Description of Procedure Anesthesia Type: General Estimated blood loss (mL): Minimal Specimen(s) collected/removed none Description of the Procedure Indication for the procedures: This gentleman has been admitted with chronic diarrhea and severe hypokalemia. Due to poor venous access, placing an Infuse-a -Port for long-term access was felt to be reasonable. With regard to diarrhea, colonoscopy was offered. Informed consent was obtained after reviewing the procedures with his legal guardian. Description of the procedures: Wukupi-u-Ydfl placement: He was placed supine on the operating table and general anesthesia induced using a laryngeal mask airway. A gram of Ancef was administered intravenously as prophylaxis against wound infection. His neck and upper chest were prepared and draped in the usual sterile manner. Right internal jugular vein was localized using a 12 MHz ultrasound probe and a floppy guidewire introduced into the heart under fluoroscopy. A subcutaneous pocket was created over the infraclavicular fossa and the Esequiel catheter brought into the neck, in a retrograde fashion. It was then advanced into the heart, under fluoroscopy, using the peel-away sheath. I was able to aspirate and flush the system without difficulty. The port was then pulled back to the superior vena cava under fluoroscopy and connected to the Qiomuy-v-Nxqt, that had been primed with heparinized saline. The port was then secured to the pectoralis tissue with 2-0 Prolene sutures. The incision was then closed using 3-0 Vicryl for the subcutaneous tissue and 4-0 Vicryl for skin, in a subcuticular fashion. The port itself was accessed and a sterile dressing applied Incomplete colonoscopy: Digital rectal examination confirmed persistent liquid stool material. I place the colonoscope in the rectum and then made an attempt to complete the examination. Due to very poor bowel preparation, further attempts were aborted. He would undergo additional bowel preparation and colonoscopy would be repeated. Findings of the Procedure See op report Allergies and Home Medications Allergies Coded Allergies: pineapple (Verified Allergy, Unknown, 08/02/17) Home Medications Cholecalciferol (Vitamin D3) 2,000 Unit Capsule, 2,000 UNIT PO DAILY, (Reported) Donepezil HCl 10 Mg Tablet, 20 MG PO HS, (Reported) TAKES 2 (10MG) TABLETS Levothyroxine Sodium 88 Mcg Tablet, 88 MCG PO DAILY, (Reported) Memantine HCl 28 Mg Cap.spr.24, 28 MG PO HS, (Reported) Potassium Chloride 40 Meq/15 Ml Liquid, 15 ML PO DAILY, (Reported) 8 DAY SUPPLY FILLED #120ML 08-02-17 Potassium Chloride 10 Meq Tablet.er, 10 MEQ PO UD, (Reported) FILLED 08-01-17 TAKE 4 TABS TWICE DAILY DAY 1 THEN 4 TABS DAILY X3 DAYS THEN 1 TAB DAILY THEREAFTER Pravastatin Sodium 40 Mg Tablet, 40 MG PO HS, (Reported) Patient Home Medication List Home Medication List Reviewed: Yes CHACHA MAHAN MD Aug 08, 2017 1:41 pm
[2017-08-08] MEDS ORDERED: morphine INJ 10 MG/ML 1ML (SYR OR VIAL) IVP PRN (13:45)
[2017-08-08] MEDS ORDERED: ONDANSETRON 4 MG/2 ML (SDV) Z0FRAN IVP PRN (13:45)
[2017-08-08] MEDS ORDERED: fentaNYL INJECTION 100 MCG/2 ML AMP IVP PRN (13:45)
[2017-08-08] MEDS ORDERED: MEPERIDINE (DEMEROL) INJ 50 MG/ML IVP PRN (13:45)
[2017-08-08] MEDS ORDERED: MAGNESIUM CITRATE 300 ML BTL PO NR ×2 (14:36→20:00)
--- NOTE | 2017-08-08 14:48 | Anesthesia-General Post-Op ---
General Patient Condition Mental Status/LOC: Same as Preop Cardiovascular: Satisfactory Nausea/Vomiting: Absent Respiratory: Satisfactory Pain: Controlled Complications: Absent Post Op Complications Complications None Follow Up Care/Instructions Patient Instructions None needed. Anesthesia/Patient Condition Patient Condition Patient is doing well, no complaints, stable vital signs, no apparent adverse anesthesia problems. No complications reported per nursing. VIVEK CARRERA CRNA Aug 08, 2017 14:48
[2017-08-08 15:59] VITALS: BP 122/87
[2017-08-08 20:07] VITALS: BP 170/81
[2017-08-08] MEDS: SIMvastatin 20 MG (ZOCOR) TAB PO SCH (20:32)
[2017-08-08] MEDS: DONEPEZIL 10 MG (ARICEPT) TAB PO SCH (20:32)
[2017-08-09] VITALS (7 sets, daily range): BP systolic 140–178; BP diastolic 71–89
[2017-08-09] MEDS: metroNIDAZOLE 500 MG (FLAGYL) TAB PO SCH ×4 (00:08→18:34)
[2017-08-09] MEDS: NS IV 500 ML 500 ML IV SCH (01:07)
[2017-08-09] MEDS: LACTATED RINGERS 1,000 ML IV SCH ×2 (03:24→18:32)
[2017-08-09 06:27] LABS: HEMOGLOBIN 10.5 G/DL (13.3-17.7); MEAN PLATELET VOLUME 12.1 FL (7.4-10.4); RED BLOOD COUNT 4.02 10^6/uL (4.35-5.85); RED CELL DISTRIBUTION WIDTH 16.1 % (10.0-14.5); WHITE BLOOD COUNT 4.8 10^3/uL (4.3-11.0)
[2017-08-09] MEDS: LACTOBACILLUS Acidoph/Bulgar (LACTINEX/FLORANEX) TAB PO SCH ×3 (06:50→18:34)
[2017-08-09] MEDS: LEVOTHYROXINE 88 MCG (LEVOTHORID) TAB PO SCH (06:50)
[2017-08-09 06:52] LABS: BUN/CREATININE RATIO 3; CALCIUM 8.4 MG/DL (8.5-10.1); CARBON DIOXIDE 30 MMOL/L (21-32); CHLORIDE 108 MMOL/L (98-107); CREATININE SERUM 0.72 MG/DL (0.60-1.30); GFR ESTIMATED > 60; GLUCOSE 91 MG/DL (70-105); MAGNESIUM 2.4 MG/DL (1.8-2.4); POTASSIUM 3.2 MMOL/L (3.6-5.0); SODIUM 145 MMOL/L (135-145)
[2017-08-09] MEDS ORDERED: MAGNESIUM CITRATE 300 ML BTL PO NR ×3 (07:00→21:00)
--- NOTE | 2017-08-09 07:43 | Progress Note (SOAP) ---
Subjective Time Seen by Provider: 07:45 Subjective/Events-last exam Patient's potassium is 3.2 today. Patient to have colonoscopy tomorrow. Patient on liquid diet. Alzheimer's. Parkinson disease Objective Exam Vital Signs Date Time Temp Pulse Resp B/P (MAP) Pulse Ox O2 Delivery O2 Flow Rate FiO2 08/09/17 01:00 70 08/09/17 00:12 97.6 87 19 143/81 (101) 96 Room Air 08/08/17 20:07 97.5 77 16 170/81 (110) 95 Room Air 08/08/17 20:00 Room Air 08/08/17 19:00 71 08/08/17 15:59 97.0 75 16 122/87 (99) 95 Room Air 08/08/17 08:00 97.5 67 20 91 Room Air I & O 08/09/17 07:00 Intake Total 3218 ml Balance 3218 ml Capillary Refill : Less Than 3 Seconds General Appearance: No Apparent Distress, WD/WN HEENT: Normal ENT Inspection Neck: Full Range of Motion, Normal Inspection Results Lab Laboratory Tests 08/08/17 12:15 08/09/17 06:15 Laboratory Tests 08/08/17 12:15: Sodium Level 142, Potassium Level 3.6, Chloride Level 105, Carbon Dioxide Level 24, Anion Gap 13, Blood Urea Nitrogen 3L, Creatinine 0.73, Estimat Glomerular Filtration Rate > 60, BUN/Creatinine Ratio 4, Glucose Level 78, Calcium Level 8.8 08/09/17 06:15: Sodium Level 145, Potassium Level 3.2L, Chloride Level 108H, Carbon Dioxide Level 30, Anion Gap 7, Blood Urea Nitrogen 2L, Creatinine 0.72, Estimat Glomerular Filtration Rate > 60, BUN/Creatinine Ratio 3, Glucose Level 91, Calcium Level 8.4L, White Blood Count 4.8, Red Blood Count 4.02L, Hemoglobin 10.5L, Hematocrit 33L, Mean Corpuscular Volume 82, Mean Corpuscular Hemoglobin 26, Mean Corpuscular Hemoglobin Concent 32, Red Cell Distribution Width 16.1H, Platelet Count 173, Mean Platelet Volume 12.1H, Magnesium Level 2.4 Microbiology 08/03/17 Cryptosporidium/Giardia - Final, Complete Assessment/Plan Assessment/Plan Assess & Plan/Chief Complaint Hypokalemia. Diarrhea. Alzheimer's. Parkinson disease. Patient is get physical therapy facility to today. Patient pulled out IV last night. . . Hypokalemia. Diarrhea. Alzheimer's. Parkinson disease. Patient still has a low potassium. . 08/08/17. Hypokalemia improving. Diarrhea. Alzheimer's. Parkinson disease area Patient to have colonoscopy if potassium increases. . 08/09/17. Hypokalemia improving. Diarrhea. Patient have colonoscopy tomorrow. Alzheimer's disease. Parkinson disease Clinical Quality Measures Admission Status Admission Dx Severe hypokalemia. Alzheimer's. Dementia. Severe diarrhea. Dehydration. Fail outpatient treatment and outpatient surgery DVT/VTE Risk/Contraindication: Risk Factor Score Per Nursin RFS Level Per Nursing on Admit: 4+=Very High BORIS KING DO Aug 09, 2017 07:43
[2017-08-09] MEDS: CHOLESTYRAMINE 4 GM (QUESTRAN LITE, PREVALITE) PKT PO SCH ×2 (09:34→21:00)
[2017-08-09] MEDS: MEMANTINE 10 MG (NAMENDA) TABLET PO SCH ×2 (09:34→20:16)
[2017-08-09] MEDS: KCL 20 MEQ TAB (K-DUR) PO SCH ×4 (09:34→20:16)
[2017-08-09] MEDS: VITAMIN D3 1,000 UNITS (CHOLECALCIFEROL) TABLET PO SCH (09:34)
[2017-08-09] MEDS: POTASSIUM CL 10MEQ/50ML IVPB 50 ML IV SCH ×2 (09:37→10:47)
--- NOTE | 2017-08-09 10:03 | Physical Therapy Daily Note ---
PT Daily Note-Current Subjective Patient is in recliner with family present. Family agrees to PT. Pain Numeric Pain Scale: 0-No Pain Location: No Pain Reported Mental Status Patient Orientation: Confused Attachments: IV Transfers Functional Letcher Measure 0=Not Assessed/NA 4=Minimal Assistance 1=Total Assistance 5=Supervision or Setup 2=Maximal Assistance 6=Modified Letcher 3=Moderate Assistance 7=Complete IndependenceIRFPAI Quality Coding Scale 6 Independent with activity with or without an assistive device 5 Patient requires set up or clean up by helper. Patient completes activity by themselves 4 Supervision or touching assist (CGA). Currie provide cues , steadying assist 3 The helper provides less than half the effort to complete the activity 2 The helper provides more than half the effort to complete the activity 1 Dependent. The helper does all the effort to complete an activity 7 Patient refused to complete or attempt activity 9 The patient did not perform the activity before the current illness or injury 88 Not attempted due to Medical conditions or safety concerns Transfers (B, C, W/C) (FIM): 4 Scootin Sit to/from Stand: 4 Weight Bearing Right Lower Extremity: Right Full Weight Bearing Left Lower Extremity: Left Full Weight Bearing Gait Training Gait (FIM): 4 Distance (FIM): 3=150 ft Distance: 250' Gait Level of Assist: 4 Gait Persons Needed: 1 Gait Assistive Device: FWW Parkinson's gait sequence with FWW. CGA for safety Assessment Patient is up in recliner with family present. Needs met. Patient to have procedure in a.m. PT Short Term Goals Short Term Goals Time Frame: Aug 11, 2017 Transfers (B,C,W/C) (FIM): 5 Gait (FIM): 2 Gait Distance Comment: 50' Gait Level of Assist: 4 Gait Assistive Device: FWW PT Plan Treatment/Plan Treatment Plan: Continue Plan of Care Treatment Plan: Bed Mobility, Education, Functional Activity [place], Functional Strength, Gait, Safety, Therapeutic Exercise, Transfers Treatment Duration: Aug 11, 2017 Frequency: 6 times per week Estimated Hrs Per Day: .25 hour per day (15-30 min) Patient and/or Family Agrees t: Yes Time/GCodes Time In: 900 Time Out: 913 Total Billed Treatment Time: 13 Total Billed Treatment 1 visit GT 13 min MESSI QUINTERO PT Aug 09, 2017 10:03
--- NOTE | 2017-08-09 14:31 | Anesthesia-General Post-Op ---
General Patient Condition Mental Status/LOC: Same as Preop Cardiovascular: Satisfactory Nausea/Vomiting: Absent Respiratory: Satisfactory Pain: Controlled Complications: Absent Post Op Complications Complications None Follow Up Care/Instructions Patient Instructions None needed. Anesthesia/Patient Condition Patient Condition Patient is doing well, no complaints, stable vital signs, no apparent adverse anesthesia problems. No complications reported per nursing. VIVEK CARRERA CRNA Aug 09, 2017 14:31
--- NOTE | 2017-08-09 15:47 | Progress Note (SOAP) ---
Subjective Date Seen by Provider: Aug 09, 2017 Time Seen by Provider: 15:45 Subjective/Events-last exam bowel preparation in progress. Hypokalemia continues, being addressed Review of Systems General: No Chills, No Night Sweats, No Fatigue, No Malaise HEENT: No Head Aches, No Eye Pain, No Ear Pain, No Dysphasia, No Sinus Congestion, No Post Nasal Drip, No Sore Throat Pulmonary: No Dyspnea, No Cough, No Pleuritic Chest Pain Cardiovascular: No: Chest Pain, Palpitations, Orthopnea, Paroxysmal Noc. Dyspnea, Edema, Lt Headedness Gastrointestinal: Diarrhea Genitourinary: No Dysuria, No Frequency, No Incontinence, No Hematuria, No Retention Musculoskeletal: No: other, neck pain, shoulder pain, arm pain, back pain, hand pain, leg pain, foot pain Neurological: Weakness Objective Exam Vital Signs Date Time Temp Pulse Resp B/P (MAP) Pulse Ox O2 Delivery O2 Flow Rate FiO2 08/09/17 12:21 168/80 (109) 08/09/17 12:14 97.5 80 16 175/84 (114) 97 Room Air 08/09/17 08:22 97.6 87 16 144/86 (105) 96 Room Air 08/09/17 07:00 87 08/09/17 04:00 97.6 81 16 140/71 (94) 94 Room Air 08/09/17 01:00 70 08/09/17 00:12 97.6 87 19 143/81 (101) 96 Room Air 08/08/17 20:07 97.5 77 16 170/81 (110) 95 Room Air 08/08/17 20:00 Room Air 08/08/17 19:00 71 08/08/17 15:59 97.0 75 16 122/87 (99) 95 Room Air I & O 08/09/17 07:00 Intake Total 3218 ml Balance 3218 ml Capillary Refill : Less Than 3 Seconds General Appearance: No Apparent Distress Neck: Normal Inspection Respiratory: Lungs Clear Cardiovascular: Regular Rate, Rhythm Gastrointestinal: non tender, soft Skin: Warm/Dry Results Lab Laboratory Tests 08/09/17 06:15: White Blood Count 4.8, Red Blood Count 4.02L, Hemoglobin 10.5L, Hematocrit 33L, Mean Corpuscular Volume 82, Mean Corpuscular Hemoglobin 26, Mean Corpuscular Hemoglobin Concent 32, Red Cell Distribution Width 16.1H, Platelet Count 173, Mean Platelet Volume 12.1H, Sodium Level 145, Potassium Level 3.2L, Chloride Level 108H, Carbon Dioxide Level 30, Anion Gap 7, Blood Urea Nitrogen 2L, Creatinine 0.72, Estimat Glomerular Filtration Rate > 60, BUN/Creatinine Ratio 3 , Glucose Level 91, Calcium Level 8.4L, Magnesium Level 2.4 Microbiology 08/03/17 Cryptosporidium/Giardia - Final, Complete Assessment/Plan Assessment/Plan Assess & Plan/Chief Complaint gentleman with chronic diarrhea requiring colonoscopy. Poor venous access. I have reviewed the details of colonoscopy and the technique of placing an Infuse- a-Port in the operating room. He does not appear to participate in conversation and his legal guardian, who was at the bedside expressed understanding the anticipated procedures. Gentleman with chronic diarrhea and hypokalemia. 4 repeat colonoscopy tomorrow Final Diagnosis chronic diarrhea. Hypokalemia Clinical Quality Measures DVT/VTE Risk/Contraindication: Risk Factor Score Per Nursin RFS Level Per Nursing on Admit: 4+=Very High CHACHA MAHAN MD Aug 09, 2017 3:47 pm
[2017-08-09] MEDS: SIMvastatin 20 MG (ZOCOR) TAB PO SCH (20:16)
[2017-08-09] MEDS: DONEPEZIL 10 MG (ARICEPT) TAB PO SCH (20:16)
[2017-08-09] MEDS ORDERED: KCL 20 MEQ TAB (K-DUR) PO ONE (21:45)
[2017-08-10] VITALS: BP 158/88
[2017-08-10] MEDS: metroNIDAZOLE 500 MG (FLAGYL) TAB PO SCH ×5 (00:15→23:45)
[2017-08-10 04:00] VITALS: BP 161/74
[2017-08-10] MEDS: LACTOBACILLUS Acidoph/Bulgar (LACTINEX/FLORANEX) TAB PO SCH ×3 (06:11→18:26)
[2017-08-10] MEDS: LEVOTHYROXINE 88 MCG (LEVOTHORID) TAB PO SCH (06:11)
[2017-08-10] MEDS ORDERED: HEParin (CENTRAL IV FLUSH) 500 UNIT/5 ML SYR ONE (07:00)
--- NOTE | 2017-08-10 07:41 | Progress Note (SOAP) ---
Subjective Time Seen by Provider: 07:40 Subjective/Events-last exam Patient resting comfortably.. Blood tests not done. Port is swollen. Significant other feels that he was playing with it. Patient has Alzheimer's. Hypertension. Diarrhea. Potassium yesterday 3.2 Objective Exam Vital Signs Date Time Temp Pulse Resp B/P (MAP) Pulse Ox O2 Delivery O2 Flow Rate FiO2 08/10/17 04:00 99.0 90 18 161/74 (103) 96 Room Air 08/10/17 01:00 82 08/10/17 00:00 99.5 94 18 158/88 (111) 97 Room Air 08/09/17 20:36 98.2 78 18 178/89 (118) 97 Room Air 08/09/17 20:16 Room Air 08/09/17 19:00 87 08/09/17 16:51 98.4 77 18 146/85 (105) 96 Room Air 08/09/17 13:00 79 08/09/17 12:21 168/80 (109) 08/09/17 12:14 97.5 80 16 175/84 (114) 97 Room Air 08/09/17 08:30 Room Air 08/09/17 08:22 97.6 87 16 144/86 (105) 96 Room Air I & O 08/10/17 07:00 Intake Total 2038 ml Balance 2038 ml Capillary Refill : Less Than 3 Seconds General Appearance: No Apparent Distress, WD/WN Results Lab Laboratory Tests 08/09/17 19:45: Potassium Level 3.2L Microbiology 08/03/17 Cryptosporidium/Giardia - Final, Complete Assessment/Plan Assessment/Plan Assess & Plan/Chief Complaint Hypokalemia. Diarrhea. Alzheimer's. Parkinson disease. Patient is get physical therapy facility to today. Patient pulled out IV last night. . . Hypokalemia. Diarrhea. Alzheimer's. Parkinson disease. Patient still has a low potassium. . 08/08/17. Hypokalemia improving. Diarrhea. Alzheimer's. Parkinson disease area Patient to have colonoscopy if potassium increases. . 08/09/17. Hypokalemia improving. Diarrhea. Patient have colonoscopy tomorrow. Alzheimer's disease. Parkinson disease. . . Hypokalemia. Diarrhea. Alzheimer's disease. Parkinson disease. No blood tests yet this morning Clinical Quality Measures Admission Status Admission Dx Severe hypokalemia. Alzheimer's. Dementia. Severe diarrhea. Dehydration. Fail outpatient treatment and outpatient surgery DVT/VTE Risk/Contraindication: Risk Factor Score Per Nursin RFS Level Per Nursing on Admit: 4+=Very High BORIS KING DO Aug 10, 2017 07:41
[2017-08-10] MEDS: KCL 20 MEQ TAB (K-DUR) PO SCH ×4 (09:35→20:06)
[2017-08-10] MEDS: MEMANTINE 10 MG (NAMENDA) TABLET PO SCH ×2 (09:35→20:05)
[2017-08-10] MEDS: CHOLESTYRAMINE 4 GM (QUESTRAN LITE, PREVALITE) PKT PO SCH ×3 (09:35→21:11)
[2017-08-10] MEDS: VITAMIN D3 1,000 UNITS (CHOLECALCIFEROL) TABLET PO SCH (09:35)
--- NOTE | 2017-08-10 09:42 | Progress Note-Standard ---
Standard Progress Note Progress Notes/Assess & Plan Date Seen by Provider: Aug 10, 2017 Time Seen by Provider: 09:41 Progress/Assessment & Plan Hypokalemia persists. Bowel prep reported to be adequate. We'll proceed with placing an Jcwdjj-a-Wvvh and performing colonoscopy. patient removed the access needle from the Mmgpwh-s-Dwus this morning causing concerns. Replace to successfully and radiologic study performed, confirming satisfactory position of the Zjaxgf-a-Edzu. Bowel prep reported to be complete. Hypokalemia, potassium levels pending. Colonoscopy this afternoon Final Diagnosis chronic diarrhea. Hypokalemia CHACHA MAHAN MD Aug 10, 2017 9:42 am
--- NOTE | 2017-08-10 09:43 | Conscious Sedation/ASA ---
Conscious Sedation Pre-Proced Time Reviewed: 09:43 ASA Class: 2 Airway Mallampati Classification: ([place] appropriate class) I. II. III, IV Lungs Heart ASA score ASA 1: a normal healthy patient ASA 2: a patient with a mild systemic disease (mid diabetes, controlled hypertension, obesity ASA 3: a patient with a severe systemic disease that limits activity (angina , COPD, prior Myocardial infarction) ASA 4: a patient with an incapacitating disease that is a constant threat to life (CHF, renal failure) ASA 5: a moribund patient not expected to survive 24 hrs. (ruptured aneurysm) ASA 6: a declared brain patient whose organs are being harvested. For emergent operations, add the letter E after the classification Grade 2 Sedation Plan: Discussed options with patient/fam Note The patient is an appropriate candidate to undergo the planned procedure, sedation, and anesthesia. The patient immediately re-assessed prior to indication. CHACHA MAHAN MD Aug 10, 2017 9:43 am
[2017-08-10] MEDS ORDERED: IOHEXOL 300 MG/ML 50 ML (OMNIPAQUE 300) VIAL IV ONE (10:30)
--- NOTE | 2017-08-10 11:13 | Diagnostic Imaging Report ---
INDICATION: Evaluate port patency. The patient had a right-sided chest port placed 2 days earlier. Reportedly, there is inability to aspirate blood from the port today. In addition, there is complaint of right chest swelling. TECHNIQUE: The patient was brought to the fluoroscopy suite and placed on the table in the supine position. Attempts were made to aspirate the port but were unsuccessful. In addition, attempts were made to inject the port and these were unsuccessful as well. Therefore, the patient's right chest wall dressing was removed. It was noticed that the patient's access needle within the port was withdrawn and only minimally within the port hub. This needle was removed and a new access needle was placed. Upon re-access, we were able to aspirate blood and inject the port. A small amount of contrast was injected through the port under fluoroscopic observation. There was free flow of contrast from the catheter tip located in the right atrium near the junction with the IVC. There is no evidence of fracture or kinking of the port. There is subsegmental atelectasis in the right lung base. No pneumothorax is seen. 27 seconds of fluoroscopy was utilized. IMPRESSION: Right chest wall port evaluation using fluoroscopy, as described. The port was reaccessed. Upon re-access, there was normal functioning of the port. Dictated by: Dictated on workstation # [id number]
--- NOTE | 2017-08-10 11:22 | Physical Therapy Progress Note ---
Therapy Progress Note Patient in procedure. PT will attempt later today. MESSI QUINTERO PT Aug 10, 2017 11:22
[2017-08-10 12:00] VITALS: BP 142/75
[2017-08-10] MEDS: POTASSIUM CL 10MEQ/50ML IVPB 50 ML IV SCH ×3 (13:17→17:17)
[2017-08-10] MEDS ORDERED: NS IV 500 ML 500 ML IV PRN (14:19)
[2017-08-10] MEDS ORDERED: MIDAZOLAM 2 MG/2 ML (VERSED) VIAL ONE (14:23)
[2017-08-10] MEDS ORDERED: fentaNYL INJECTION 100 MCG/2 ML AMP ONE (14:24)
[2017-08-10] MEDS: fentaNYL INJECTION 100 MCG/2 ML AMP IVP PRN ×4 (14:25→14:55)
[2017-08-10] MEDS: MIDAZOLAM 2 MG/2 ML (VERSED) VIAL IVP PRN ×2 (14:26→14:36)
--- NOTE | 2017-08-10 15:04 | Endo Procedure Record ---
Endo Procedure Report Date of Procedure Last Colonoscopy: No Aug 10, 2017 Surgeon (s) CHACHA MAHAN MD Lithographic Printing Machinist (s): N/A Post Procedure/Op Diagnosis Normal colonoscopy Procedure Performed Colonoscopy to right colon Description of Procedure Anesthesia Type: Conscious Sedation Specimen(s) collected/removed none Description of the Procedure Indication for the procedures: This gentleman has been admitted with chronic diarrhea and severe hypokalemia. With regard to diarrhea, colonoscopy was offered. Informed consent was obtained after reviewing the procedures with his legal guardian. Description of the procedure: Colonoscopy: Digital rectal examination was unremarkable. The colonoscope was then introduced into the rectum and advanced with difficulty to the right colon. The quality of bowel preparation was excellent. Apart from redundancy of the colon, there was no mucosal abnormality He tolerated the procedure well and was taken back to the nursing area in a stable condition Impression: Chronic diarrhea. Normal colonoscopy. Copies To: BORIS KING XAVIER M MD Aug 10, 2017 3:04 pm
--- NOTE | 2017-08-10 15:21 | Physical Therapy Progress Note ---
Therapy Progress Note Patient not seen on this date due to procedure and prep. Will resume in MESSI Pablo PT Aug 10, 2017 15:21
[2017-08-10 16:56] VITALS: BP 148/85
[2017-08-10] MEDS: LACTATED RINGERS 1,000 ML IV SCH (17:40)
[2017-08-10] MEDS: SIMvastatin 20 MG (ZOCOR) TAB PO SCH (20:05)
[2017-08-10] MEDS: DONEPEZIL 10 MG (ARICEPT) TAB PO SCH (20:05)
[2017-08-10 20:07] VITALS: BP 155/77
[2017-08-11] VITALS: BP 159/83
[2017-08-11 04:00] VITALS: BP 120/73
[2017-08-11 06:59] LABS: HEMOGLOBIN 9.7 G/DL (13.3-17.7); MEAN PLATELET VOLUME 10.8 FL (7.4-10.4); RED BLOOD COUNT 3.66 10^6/uL (4.35-5.85); RED CELL DISTRIBUTION WIDTH 16.1 % (10.0-14.5); WHITE BLOOD COUNT 5.2 10^3/uL (4.3-11.0)
[2017-08-11 07:20] LABS: BUN/CREATININE RATIO 4; CALCIUM 8.5 MG/DL (8.5-10.1); CARBON DIOXIDE 26 MMOL/L (21-32); CHLORIDE 109 MMOL/L (98-107); CREATININE SERUM 0.69 MG/DL (0.60-1.30); GFR ESTIMATED > 60; GLUCOSE 97 MG/DL (70-105); POTASSIUM 3.1 MMOL/L (3.6-5.0); SODIUM 143 MMOL/L (135-145)
--- NOTE | 2017-08-11 08:23 | Progress Note (SOAP) ---
Subjective Time Seen by Provider: 08:20 Subjective/Events-last exam Patient doing better today. Potassium 3.1. No diarrhea. Plan to discharge today. BMP on Monday. Objective Exam Vital Signs Date Time Temp Pulse Resp B/P (MAP) Pulse Ox O2 Delivery O2 Flow Rate FiO2 08/11/17 07:00 74 08/11/17 04:00 98.2 98 18 120/73 (89) 98 Room Air 08/11/17 01:00 80 08/11/17 00:00 98.7 82 18 159/83 (108) 97 Room Air 08/10/17 20:30 Room Air 08/10/17 20:07 99.7 95 18 155/77 (103) 93 Room Air 08/10/17 19:00 102 08/10/17 16:56 99.4 70 18 148/85 (106) 96 Room Air 08/10/17 13:00 90 08/10/17 12:00 98.7 82 18 142/75 (97) 94 Room Air I & O 08/11/17 06:59 Intake Total 1225 ml Balance 1225 ml Capillary Refill : Less Than 3 Seconds General Appearance: No Apparent Distress, WD/WN HEENT: Normal ENT Inspection Neck: Full Range of Motion, Non Tender Respiratory: Lungs Clear, No Accessory Muscle Use, No Respiratory Distress Cardiovascular: Regular Rate, Rhythm Gastrointestinal: non tender, soft Results Lab Laboratory Tests 08/10/17 11:50 08/11/17 06:50 Laboratory Tests 08/10/17 11:50: Potassium Level 3.4L 08/11/17 06:50: Potassium Level 3.1L, White Blood Count 5.2, Red Blood Count 3.66L, Hemoglobin 9.7L, Hematocrit 30L, Mean Corpuscular Volume 82, Mean Corpuscular Hemoglobin 27 , Mean Corpuscular Hemoglobin Concent 32, Red Cell Distribution Width 16.1H, Platelet Count 159, Mean Platelet Volume 10.8H, Sodium Level 143, Chloride Level 109H, Carbon Dioxide Level 26, Anion Gap 8, Blood Urea Nitrogen 3L, Creatinine 0.69, Estimat Glomerular Filtration Rate > 60, BUN/Creatinine Ratio 4 , Glucose Level 97, Calcium Level 8.5 Microbiology 08/03/17 Cryptosporidium/Giardia - Final, Complete Assessment/Plan Assessment/Plan Assess & Plan/Chief Complaint Hypokalemia. Diarrhea. Alzheimer's. Parkinson disease. Patient is get physical therapy facility to today. Patient pulled out IV last night. . . Hypokalemia. Diarrhea. Alzheimer's. Parkinson disease. Patient still has a low potassium. . 08/08/17. Hypokalemia improving. Diarrhea. Alzheimer's. Parkinson disease area Patient to have colonoscopy if potassium increases. . 08/09/17. Hypokalemia improving. Diarrhea. Patient have colonoscopy tomorrow. Alzheimer's disease. Parkinson disease. . . Hypokalemia. Diarrhea. Alzheimer's disease. Parkinson disease. No blood tests yet this morning. 3 08/11/17. Hypokalemia better. Potassium 3.1 today. Diarrhea no diarrhea this morning. Alzheimer's. Parkinson disease. Clinical Quality Measures Admission Status Admission Dx Severe hypokalemia. Alzheimer's. Dementia. Severe diarrhea. Dehydration. Fail outpatient treatment and outpatient surgery DVT/VTE Risk/Contraindication: Risk Factor Score Per Nursin RFS Level Per Nursing on Admit: 4+=Very High BORIS KING DO Aug 11, 2017 08:23
[2017-08-11 08:30] VITALS: BP 155/77
[2017-08-11] MEDS: LEVOTHYROXINE 88 MCG (LEVOTHORID) TAB PO SCH (09:31)
[2017-08-11] MEDS: VITAMIN D3 1,000 UNITS (CHOLECALCIFEROL) TABLET PO SCH (09:31)
[2017-08-11] MEDS: LACTOBACILLUS Acidoph/Bulgar (LACTINEX/FLORANEX) TAB PO SCH ×2 (09:31→12:10)
[2017-08-11] MEDS: CHOLESTYRAMINE 4 GM (QUESTRAN LITE, PREVALITE) PKT PO SCH (09:31)
[2017-08-11] MEDS: MEMANTINE 10 MG (NAMENDA) TABLET PO SCH (09:31)
[2017-08-11] MEDS: KCL 20 MEQ TAB (K-DUR) PO SCH ×2 (09:31→13:00)
--- NOTE | 2017-08-11 10:18 | Physical Therapy Daily Note ---
PT Daily Note-Current Mental Status Patient Orientation: Person, Confused Transfers Functional [place] Measure 0=Not Assessed/NA 4=Minimal Assistance 1=Total Assistance 5=Supervision or Setup 2=Maximal Assistance 6=Modified [place] 3=Moderate Assistance 7=Complete IndependenceIRFPAI Quality Coding Scale 6 Independent with activity with or without an assistive device 5 Patient requires set up or clean up by helper. Patient completes activity by themselves 4 Supervision or touching assist (CGA). [place] provide cues , steadying assist 3 The helper provides less than half the effort to complete the activity 2 The helper provides more than half the effort to complete the activity 1 Dependent. The helper does all the effort to complete an activity 7 Patient refused to complete or attempt activity 9 The patient did not perform the activity before the current illness or injury 88 Not attempted due to Medical conditions or safety concerns Transfers (B, C, W/C) (FIM): 4 Scootin Rollin Supine to/from Sit: 4 Sit to/from Stand: 4 Bed to/from Chair: 4 tactile cues for sequencing and wt shift during transfers Weight Bearing Right Lower Extremity: Right Full Weight Bearing Left Lower Extremity: Left Full Weight Bearing Gait Training Gait (FIM): 4 Distance (FIM): 3=150 ft Distance: 200 Gait Level of Assist: 4 Gait Persons Needed: 1 Gait Assistive Device: FWW shuffled gait with required verbal cues to case picker feet and to safely manage walker during turns Assessment Current Status: Fair Progress Pt progressed ambulation distance. Motivation and cognition are limiting factors in regard to improving independence with mobility. PT Short Term Goals Short Term Goals Time Frame: Aug 11, 2017 Transfers (B,C,W/C) (FIM): 5 Gait (FIM): 2 Gait Distance Comment: 50' Gait Level of Assist: 4 Gait Assistive Device: FWW PT Plan Problem List Problem List: Activity Tolerance, Balance, Gait Treatment/Plan Treatment Plan: Continue Plan of Care Treatment Plan: Bed Mobility, Education, Functional Activity [place], Functional Strength, Gait, Safety, Therapeutic Exercise, Transfers Treatment Duration: Aug 11, 2017 Frequency: 6 times per week Estimated Hrs Per Day: .25 hour per day (15-30 min) Patient and/or Family Agrees t: Yes Time/GCodes Time In: 0850 Time Out: 0910 Total Billed Treatment Time: 20 Total Billed Treatment visit, gait 15, FA 5 min KADEN BLAND PT Aug 11, 2017 10:18
[2017-08-11] MEDS ORDERED: POTA10TA36 PO (11:31)
--- NOTE | 2017-08-11 11:45 | Discharge Inst-Simple/Standard ---
Discharge Inst-Standard Patient Instructions/Follow Up Plan of Care/Instructions/FU: patient to have physical therapy at hospital Activity as Tolerated: Yes Discharge Diet: Regular Diet BORIS KING DO Aug 11, 2017 11:45
[2017-08-11 12:24] VITALS: BP 162/72
[2017-08-11 14:52] VITALS: BP 162/72
--- NOTE | 2017-08-14 06:55 | Discharge Summary ---
Diagnosis/Chief Complaint Date of Admission Aug 03, 2017 at 06:40 Date of Discharge Aug 11, 2017 at 15:00 Discharge Date: Aug 11, 2017 Discharge Time: 06:45 Discharge Diagnosis severe hypokalemia. diarrhea. Alzheimer's disease. Hypertension. parkinson disease. Reason Hospital Visit Patient has a potassium of 1.8 Yesterday patient went to outpatient surgery and unable to get a midline more IV going to give potassium. Patient has been having diarrhea for the last month. Patient dehydrated. Patient failed outpatient treatment. Patient physically has deteriorated. Patient not using a walker to get around and previous to this was able to get around without 1. Patient not eating. Patient has Alzheimer's and Parkinson's disease. 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 Discharge Summary Procedures colonoscopy Consultations surgery Discharge Physical Examination Allergies: Coded Allergies: pineapple (Verified Allergy, Unknown, 08/02/17) Vitals & I&Os Vital Signs Date Time Temp Pulse Resp B/P (MAP) Pulse Ox O2 Delivery O2 Flow Rate FiO2 08/11/17 14:52 84 18 162/72 98 Room Air 08/11/17 12:24 97.9 Hospital Course no diarrhea at discharge Labs (last 24 hrs) Laboratory Tests 08/03/17 05:40: White Blood Count 5.1, Red Blood Count 4.33L, Hemoglobin 11.4L, Hematocrit 36L, Mean Corpuscular Volume 83, Mean Corpuscular Hemoglobin 26, Mean Corpuscular Hemoglobin Concent 32, Red Cell Distribution Width 15.9H, Platelet Count 171, Mean Platelet Volume 12.5H, Neutrophils (%) (Auto) 62, Lymphocytes (%) (Auto) 27 , Monocytes (%) (Auto) 9, Eosinophils (%) (Auto) 1, Basophils (%) (Auto) 0, Neutrophils # (Auto) 3.2, Lymphocytes # (Auto) 1.4, Monocytes # (Auto) 0.5, Eosinophils # (Auto) 0.1, Basophils # (Auto) 0.0, Erythrocyte Sedimentation Rate 30, Sodium Level 147H, Potassium Level 1.9*L, Chloride Level 94L, Carbon Dioxide Level 34H, Anion Gap 19H, Blood Urea Nitrogen 5L, Creatinine 0.86, Estimat Glomerular Filtration Rate > 60, BUN/Creatinine Ratio 6, Glucose Level 104, Calcium Level 9.0, Phosphorus Level 4.2, Magnesium Level 2.4, Total Bilirubin 0.6, Aspartate Amino Transf (AST/SGOT) 54H, Alanine Aminotransferase ( ALT/SGPT) 34, Alkaline Phosphatase 40, C-Reactive Protein High Sensitivity 0.58H , Total Protein 6.3L, Albumin 3.6, Thyroid Stimulating Hormone (TSH) 2.21 08/03/17 06:40: Lab Scanned Report Referred Lab Report 08/03/17 08:42: Lactic Acid Level 1.57 08/03/17 14:30: Stool Occult Blood Immunoassay NEGATIVE 08/04/17 07:20: White Blood Count 4.7, Red Blood Count 4.22L, Hemoglobin 10.9L, Hematocrit 35L, Mean Corpuscular Volume 83, Mean Corpuscular Hemoglobin 26, Mean Corpuscular Hemoglobin Concent 31L, Red Cell Distribution Width 15.8H, Platelet Count 150, Mean Platelet Volume 12.1H, Neutrophils (%) (Auto) 70, Lymphocytes (%) (Auto) 21 , Monocytes (%) (Auto) 8, Eosinophils (%) (Auto) 1, Basophils (%) (Auto) 0, Neutrophils # (Auto) 3.2, Lymphocytes # (Auto) 1.0, Monocytes # (Auto) 0.4, Eosinophils # (Auto) 0.0, Basophils # (Auto) 0.0, Sodium Level 152H, Potassium Level 2.6L, Chloride Level 109H, Carbon Dioxide Level 30, Anion Gap 13, Blood Urea Nitrogen 3L, Creatinine 0.74, Estimat Glomerular Filtration Rate > 60, BUN/ Creatinine Ratio 4, Glucose Level 96, Calcium Level 8.1L, Total Bilirubin 0.5, Aspartate Amino Transf (AST/SGOT) 51H, Alanine Aminotransferase (ALT/SGPT) 33, Alkaline Phosphatase 36L, Total Protein 5.7L, Albumin 3.4 08/04/17 08:35: Urine Color YELLOW, Urine Clarity CLEAR, Urine pH 8, Urine Specific [place] 1.010L, Urine Protein NEGATIVE, Urine Glucose (UA) NEGATIVE, Urine Ketones NEGATIVE, Urine Nitrite NEGATIVE, Urine Bilirubin NEGATIVE, Urine Urobilinogen NORMAL, Urine Leukocyte Esterase NEGATIVE, Urine RBC (Auto) NEGATIVE, Urine RBC NONE, Urine WBC NONE, Urine Squamous Epithelial Cells NONE, Urine Crystals NONE , Urine Bacteria NEGATIVE, Urine Casts NONE, Urine Mucus NEGATIVE, Urine Culture Indicated NO 08/04/17 10:50: Sodium Level 148H, Potassium Level 2.7L, Chloride Level 109H, Carbon Dioxide Level 27, Anion Gap 12, Blood Urea Nitrogen 3L, Creatinine 0.82, Estimat Glomerular Filtration Rate > 60, BUN/Creatinine Ratio 4, Glucose Level 232H, Calcium Level 8.2L 08/06/17 10:52: Sodium Level 142, Potassium Level 2.3*L, Chloride Level 102, Carbon Dioxide Level 26, Anion Gap 14, Blood Urea Nitrogen 2L, Creatinine 0.78, Estimat Glomerular Filtration Rate > 60, BUN/Creatinine Ratio 3, Glucose Level 130H, Calcium Level 8.5 08/07/17 08:05: Sodium Level 140, Potassium Level 2.6L, Chloride Level 102, Carbon Dioxide Level 31, Anion Gap 7, Blood Urea Nitrogen 3L, Creatinine 0.73, Estimat Glomerular Filtration Rate > 60, BUN/Creatinine Ratio 4, Glucose Level 92, Calcium Level 8.5 08/07/17 13:49: Potassium Level 3.1L 08/08/17 05:31: Sodium Level 142, Potassium Level 3.1L, Chloride Level 106, Carbon Dioxide Level 24, Anion Gap 12, Blood Urea Nitrogen 3L, Creatinine 0.75, Estimat Glomerular Filtration Rate > 60, BUN/Creatinine Ratio 4, Glucose Level 79, Calcium Level 8.6 08/08/17 12:15: Sodium Level 142, Potassium Level 3.6, Chloride Level 105, Carbon Dioxide Level 24, Anion Gap 13, Blood Urea Nitrogen 3L, Creatinine 0.73, Estimat Glomerular Filtration Rate > 60, BUN/Creatinine Ratio 4, Glucose Level 78, Calcium Level 8.8 08/09/17 06:15: White Blood Count 4.8, Red Blood Count 4.02L, Hemoglobin 10.5L, Hematocrit 33L, Mean Corpuscular Volume 82, Mean Corpuscular Hemoglobin 26, Mean Corpuscular Hemoglobin Concent 32, Red Cell Distribution Width 16.1H, Platelet Count 173, Mean Platelet Volume 12.1H, Sodium Level 145, Potassium Level 3.2L, Chloride Level 108H, Carbon Dioxide Level 30, Anion Gap 7, Blood Urea Nitrogen 2L, Creatinine 0.72, Estimat Glomerular Filtration Rate > 60, BUN/Creatinine Ratio 3 , Glucose Level 91, Calcium Level 8.4L, Magnesium Level 2.4 08/09/17 19:45: Potassium Level 3.2L 08/10/17 11:50: Potassium Level 3.4L 08/11/17 06:50: White Blood Count 5.2, Red Blood Count 3.66L, Hemoglobin 9.7L, Hematocrit 30L, Mean Corpuscular Volume 82, Mean Corpuscular Hemoglobin 27, Mean Corpuscular Hemoglobin Concent 32, Red Cell Distribution Width 16.1H, Platelet Count 159, Mean Platelet Volume 10.8H, Sodium Level 143, Potassium Level 3.1L, Chloride Level 109H, Carbon Dioxide Level 26, Anion Gap 8, Blood Urea Nitrogen 3L, Creatinine 0.69, Estimat Glomerular Filtration Rate > 60, BUN/Creatinine Ratio 4 , Glucose Level 97, Calcium Level 8.5 Microbiology 08/03/17 Cryptosporidium/Giardia - Final, Complete Laboratory Tests 08/03/17 05:40 08/04/17 07:20 08/04/17 10:50 08/06/17 10:52 08/07/17 08:05 08/07/17 13:49 08/08/17 05:31 08/08/17 12:15 08/09/17 06:15 08/09/17 19:45 08/10/17 11:50 08/11/17 06:50 Pending Labs Microbiology Date/Time Source Procedure Growth Status 08/03/17 14:30 Stool Cryptosporidium/Giardia - Final Complete 08/03/17 14:30 Stool C. difficile GDH Antigen & Toxins - Final Complete 08/03/17 14:30 Stool Stool Culture - Final Complete Laboratory Tests 08/03/17 05:40: White Blood Count 5.1, Red Blood Count 4.33, Hemoglobin 11.4, Hematocrit 36, Mean Corpuscular Volume 83, Mean Corpuscular Hemoglobin 26, Mean Corpuscular Hemoglobin Concent 32, Red Cell Distribution Width 15.9, Platelet Count 171, Mean Platelet Volume 12.5, Neutrophils (%) (Auto) 62, Lymphocytes (%) (Auto) 27 , Monocytes (%) (Auto) 9, Eosinophils (%) (Auto) 1, Basophils (%) (Auto) 0, Neutrophils # (Auto) 3.2, Lymphocytes # (Auto) 1.4, Monocytes # (Auto) 0.5, Eosinophils # (Auto) 0.1, Basophils # (Auto) 0.0, Erythrocyte Sedimentation Rate 30, Sodium Level 147, Potassium Level 1.9, Chloride Level 94, Carbon Dioxide Level 34, Anion Gap 19, Blood Urea Nitrogen 5, Creatinine 0.86, Estimat Glomerular Filtration Rate > 60, BUN/Creatinine Ratio 6, Glucose Level 104, Calcium Level 9.0, Phosphorus Level 4.2, Magnesium Level 2.4, Total Bilirubin 0.6, Aspartate Amino Transf (AST/SGOT) 54, Alanine Aminotransferase (ALT/SGPT) 34, Alkaline Phosphatase 40, C-Reactive Protein High Sensitivity 0.58, Total Protein 6.3, Albumin 3.6, Thyroid Stimulating Hormone (TSH) 2.21 08/03/17 06:40: Lab Scanned Report Referred Lab Report 08/03/17 08:42: Lactic Acid Level 1.57 08/03/17 14:30: Stool Occult Blood Immunoassay NEGATIVE 08/04/17 07:20: White Blood Count 4.7, Red Blood Count 4.22, Hemoglobin 10.9, Hematocrit 35, Mean Corpuscular Volume 83, Mean Corpuscular Hemoglobin 26, Mean Corpuscular Hemoglobin Concent 31, Red Cell Distribution Width 15.8, Platelet Count 150, Mean Platelet Volume 12.1, Neutrophils (%) (Auto) 70, Lymphocytes (%) (Auto) 21 , Monocytes (%) (Auto) 8, Eosinophils (%) (Auto) 1, Basophils (%) (Auto) 0, Neutrophils # (Auto) 3.2, Lymphocytes # (Auto) 1.0, Monocytes # (Auto) 0.4, Eosinophils # (Auto) 0.0, Basophils # (Auto) 0.0, Sodium Level 152, Potassium Level 2.6, Chloride Level 109, Carbon Dioxide Level 30, Anion Gap 13, Blood Urea Nitrogen 3, Creatinine 0.74, Estimat Glomerular Filtration Rate > 60, BUN/ Creatinine Ratio 4, Glucose Level 96, Calcium Level 8.1, Total Bilirubin 0.5, Aspartate Amino Transf (AST/SGOT) 51, Alanine Aminotransferase (ALT/SGPT) 33, Alkaline Phosphatase 36, Total Protein 5.7, Albumin 3.4 08/04/17 08:35: Urine Color YELLOW, Urine Clarity CLEAR, Urine pH 8, Urine Specific [place] 1.010, Urine Protein NEGATIVE, Urine Glucose (UA) NEGATIVE, Urine Ketones NEGATIVE, Urine Nitrite NEGATIVE, Urine Bilirubin NEGATIVE, Urine Urobilinogen NORMAL, Urine Leukocyte Esterase NEGATIVE, Urine RBC (Auto) NEGATIVE, Urine RBC NONE, Urine WBC NONE, Urine Squamous Epithelial Cells NONE, Urine Crystals NONE , Urine Bacteria NEGATIVE, Urine Casts NONE, Urine Mucus NEGATIVE, Urine Culture Indicated NO 08/04/17 10:50: Sodium Level 148, Potassium Level 2.7, Chloride Level 109, Carbon Dioxide Level 27, Anion Gap 12, Blood Urea Nitrogen 3, Creatinine 0.82, Estimat Glomerular Filtration Rate > 60, BUN/Creatinine Ratio 4, Glucose Level 232, Calcium Level 8.2 08/06/17 10:52: Sodium Level 142, Potassium Level 2.3, Chloride Level 102, Carbon Dioxide Level 26, Anion Gap 14, Blood Urea Nitrogen 2, Creatinine 0.78, Estimat Glomerular Filtration Rate > 60, BUN/Creatinine Ratio 3, Glucose Level 130, Calcium Level 8.5 08/07/17 08:05: Sodium Level 140, Potassium Level 2.6, Chloride Level 102, Carbon Dioxide Level 31, Anion Gap 7, Blood Urea Nitrogen 3, Creatinine 0.73, Estimat Glomerular Filtration Rate > 60, BUN/Creatinine Ratio 4, Glucose Level 92, Calcium Level 8.5 08/07/17 13:49: Potassium Level 3.1 08/08/17 05:31: Sodium Level 142, Potassium Level 3.1, Chloride Level 106, Carbon Dioxide Level 24, Anion Gap 12, Blood Urea Nitrogen 3, Creatinine 0.75, Estimat Glomerular Filtration Rate > 60, BUN/Creatinine Ratio 4, Glucose Level 79, Calcium Level 8.6 08/08/17 12:15: Sodium Level 142, Potassium Level 3.6, Chloride Level 105, Carbon Dioxide Level 24, Anion Gap 13, Blood Urea Nitrogen 3, Creatinine 0.73, Estimat Glomerular Filtration Rate > 60, BUN/Creatinine Ratio 4, Glucose Level 78, Calcium Level 8.8 08/09/17 06:15: White Blood Count 4.8, Red Blood Count 4.02, Hemoglobin 10.5, Hematocrit 33, Mean Corpuscular Volume 82, Mean Corpuscular Hemoglobin 26, Mean Corpuscular Hemoglobin Concent 32, Red Cell Distribution Width 16.1, Platelet Count 173, Mean Platelet Volume 12.1, Sodium Level 145, Potassium Level 3.2, Chloride Level 108, Carbon Dioxide Level 30, Anion Gap 7, Blood Urea Nitrogen 2, Creatinine 0.72, Estimat Glomerular Filtration Rate > 60, BUN/Creatinine Ratio 3 , Glucose Level 91, Calcium Level 8.4, Magnesium Level 2.4 08/09/17 19:45: Potassium Level 3.2 08/10/17 11:50: Potassium Level 3.4 08/11/17 06:50: White Blood Count 5.2, Red Blood Count 3.66, Hemoglobin 9.7, Hematocrit 30, Mean Corpuscular Volume 82, Mean Corpuscular Hemoglobin 27, Mean Corpuscular Hemoglobin Concent 32, Red Cell Distribution Width 16.1, Platelet Count 159, Mean Platelet Volume 10.8, Sodium Level 143, Potassium Level 3.1, Chloride Level 109, Carbon Dioxide Level 26, Anion Gap 8, Blood Urea Nitrogen 3, Creatinine 0.69, Estimat Glomerular Filtration Rate > 60, BUN/Creatinine Ratio 4 , Glucose Level 97, Calcium Level 8.5 Discharge Home Medications: Active Scripts Active Potassium Chloride 10 Meq Tab.er.prt 10 Meq PO BID Reported Vitamin D3 (Cholecalciferol (Vitamin D3)) 2,000 Unit Capsule 2,000 Unit PO DAILY Namenda Xr (Memantine HCl) 28 Mg Cap.spr.24 28 Mg PO HS Donepezil HCl 10 Mg Tablet 20 Mg PO HS TAKES 2 (10MG) TABLETS Pravastatin Sodium 40 Mg Tablet 40 Mg PO HS Levothyroxine Sodium 88 Mcg Tablet 88 Mcg PO DAILY Instructions to patient/family Please see electronic discharge instructions given to patient. Clinical Quality Measures DVT/VTE Risk/Contraindication: Risk Factor Score Per Nursin RFS Level Per Nursing on Admit: 4+=Very High BORIS KING DO Aug 14, 2017 06:55
== END 2017-08-11 15:00 | disposition home health service (06) | DRG 641 ==
LOC: EDUNIT# 05:17 → ER 05:19 → 4TH 06:40
PROVIDERS: ADMIT Family Medicine; ATTEND Family Medicine
PROC: 0DJD8ZZ Inspection of Lower Intestinal Tract, Via Natural or Artificial Opening Endoscopic (ICD-10-PCS; principal; 2017-08-08 12:10)
PROC: 0DJD8ZZ Inspection of Lower Intestinal Tract, Via Natural or Artificial Opening Endoscopic (ICD-10-PCS; 2017-08-10)
DX: E87.6 Hypokalemia (principal); R19.7 Diarrhea, unspecified; G20 Parkinson's disease; G30.9 Alzheimer's disease, unspecified; F02.80 Dementia in other diseases classified elsewhere, unspecified severity, without behavioral disturbance, psychotic disturbance, mood disturbance, and anxiety; R32 Unspecified urinary incontinence; E86.0 Dehydration; E87.70 Fluid overload, unspecified; I10 Essential (primary) hypertension
CPT/HCPCS: 36415; 49465; 80048; 80053; 81000; 82274; 83605; 83735; 84100; 84132; 84443; 85025; 85027; 85652; 86141; 87045; 87046; 87324; 87328; 87329; 87449; 93005; 96360; 96361

== ENCOUNTER → 2017-08-21 | Outpatient (CLI) | payer MEDICARE, OTHER ==
[~2017-08-21] MED LIST changes: -KCL 20 MEQ POWDER FOR ORAL SOLUTION PO ONE; +POTA10TA36 PO; -POTASSIUM CL 10 MEQ/50 ML IVPB (PRE-MIX) IV SCH
[2017-08-21 13:06] LABS: BUN/CREATININE RATIO 10; CALCIUM 9.5 MG/DL (8.5-10.1); CARBON DIOXIDE 31 MMOL/L (21-32); CHLORIDE 101 MMOL/L (98-107); CREATININE SERUM 0.93 MG/DL (0.60-1.30); GFR ESTIMATED > 60; GLUCOSE 149 MG/DL (70-105); SODIUM 141 MMOL/L (135-145)
[2017-08-21 13:11] LABS: POTASSIUM 2.4 MMOL/L (3.6-5.0)
== END ==
LOC: HH 08:00
PROVIDERS: ATTEND Family Medicine
DX: E87.6 Hypokalemia (principal)
CPT/HCPCS: 80048

== ENCOUNTER → 2017-08-23 | Outpatient (CLI) | payer MEDICARE, OTHER ==
[2017-08-23 15:45] LABS: BUN/CREATININE RATIO 11; CALCIUM 9.2 MG/DL (8.5-10.1); CARBON DIOXIDE 32 MMOL/L (21-32); CHLORIDE 100 MMOL/L (98-107); CREATININE SERUM 0.72 MG/DL (0.60-1.30); GFR ESTIMATED > 60; GLUCOSE 119 MG/DL (70-105); POTASSIUM 2.8 MMOL/L (3.6-5.0); SODIUM 141 MMOL/L (135-145)
== END ==
LOC: HH 08:00
PROVIDERS: ATTEND Family Medicine
DX: E87.6 Hypokalemia (principal)
CPT/HCPCS: 80048

== ENCOUNTER → 2017-08-29 | Outpatient (CLI) | payer MEDICARE, OTHER ==
[2017-08-29 10:02] LABS: BUN/CREATININE RATIO 12; CARBON DIOXIDE 28 MMOL/L (21-32); CHLORIDE 104 MMOL/L (98-107); CREATININE SERUM 0.74 MG/DL (0.60-1.30); GFR ESTIMATED > 60; GLUCOSE 90 MG/DL (70-105); POTASSIUM 3.4 MMOL/L (3.6-5.0); SODIUM 138 MMOL/L (135-145)
== END ==
LOC: HH 08:00
PROVIDERS: ATTEND Family Medicine
DX: E87.6 Hypokalemia (principal)
CPT/HCPCS: 80048

== ENCOUNTER → 2017-09-04 | Outpatient (CLI) | payer MEDICARE, OTHER ==
[2017-09-04 15:50] LABS: BUN/CREATININE RATIO 11; CALCIUM 9.4 MG/DL (8.5-10.1); CARBON DIOXIDE 27 MMOL/L (21-32); CHLORIDE 107 MMOL/L (98-107); GFR ESTIMATED > 60; GLUCOSE 99 MG/DL (70-105); POTASSIUM 2.9 MMOL/L (3.6-5.0); SODIUM 141 MMOL/L (135-145)
== END ==
LOC: HH 08:00
PROVIDERS: ATTEND Family Medicine
DX: E87.6 Hypokalemia (principal)
CPT/HCPCS: 80048

== ENCOUNTER → 2017-11-08 | Outpatient (CLI) | payer MEDICARE, OTHER ==
[~2017-11-08] MED LIST changes: -POTA40LI PO; +POTA40LI11 PO
--- NOTE | 2017-11-08 11:40 | Diagnostic Imaging Report ---
INDICATION: Right knee pain 3 views of the right knee show no fracture, dislocation or other acute abnormalities. Joint spaces are well maintained. Articular surfaces are smooth. IMPRESSION: Negative right knee. Dictated by: Dictated on workstation # [id number]
== END ==
LOC: RAD 10:43
PROVIDERS: ATTEND Family Medicine
DX: S89.91XA Unspecified injury of right lower leg, initial encounter (principal); W05.0XXA Fall from non-moving wheelchair, initial encounter
CPT/HCPCS: 73562

== ENCOUNTER → 2017-11-17 | Outpatient (CLI) | payer MEDICARE, OTHER ==
--- NOTE | 2017-11-17 12:40 | Diagnostic Imaging Report ---
EXAMINATION: Right knee at 12:38 p.m. INDICATION: Knee pain. Three views were obtained. FINDINGS: On the lateral view, there is a thin linear lucency extending through the apex of the superior pole of the patella. This finding was not present on the prior exam of 11/08/2017. This linear lucency cannot be identified with certainty on the other two projections, but I am concerned that this is related to a nondisplaced fracture. The possibility that there is an injury to the quadriceps tendon should also be considered. If further evaluation is desired, then MRI would be recommended. No other fracture or acute bony abnormality is appreciated. 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 In the interval since the prior study, a small joint effusion has developed. IMPRESSION: 1. The findings do suggest a nondisplaced fracture involving the superior pole of the patella. There could also be an injury to the quadriceps tendon in this area. If further evaluation is desired, then MRI would be recommended. 2. There is no acute bony abnormality noted otherwise. 3. There is now a small joint effusion present. Dictated by: Dictated on workstation # [id number]
== END ==
LOC: RAD 12:07
PROVIDERS: ATTEND Family Medicine
DX: M25.461 Effusion, right knee (principal)
CPT/HCPCS: 73562

== ENCOUNTER 2018-04-26 09:04 | Emergency (ER) | payer MEDICARE, OTHER ==
[~2018-04-26] VITALS: Ht 165.1 cm; Wt 68.0 kg
--- OUTSIDE RECORDS SUMMARY | 2018-04-26 09:11 | XMS REPORT | Continuity of Care Document ---
Author Author [facility] Organization [facility] Address Unknown Phone Unavailable Allergies Active Description Code Type Severity Reaction Onset Reported/Identified Relationship to Patient Clinical Status Yes pineapple [id number] Drug Allergy Unknown N/A 08/02/2017 Medications There is no data. 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 06/12/2017 [facility] 787.02 NAUSEA ALONE 06/12/2017 GELLENDER DOBORIS Ot 573.8 LIVER DISORDERS NEC 06/12/2017 GELLENDER DOBORIS Ot E03.9 HYPOTHYROIDISM, UNSPECIFIED 06/12/2017 GELLENDER DOBORIS Ot E78.2 MIXED HYPERLIPIDEMIA 06/13/2017 GELLENDER DOBORIS Ot E03.9 HYPOTHYROIDISM, UNSPECIFIED 06/13/2017 GELLENDER DOBORIS Ot E78.5 HYPERLIPIDEMIA, UNSPECIFIED 06/13/2017 GELLENDER DOBORIS Ot F02.80 DEMENTIA IN OTH DISEASES CLASSD ELSWHR W 06/13/2017 GELLENDER DOBORIS Ot G30.9 ALZHEIMER'S DISEASE, UNSPECIFIED 06/13/2017 GELLENDER DOBORIS Ot R60.9 EDEMA, UNSPECIFIED 06/27/2017 GELLENDER DOBORIS Ot M79.89 OTHER SPECIFIED SOFT TISSUE DISORDERS 06/27/2017 GELLENDER DOBORIS Ot R41.82 ALTERED MENTAL STATUS, UNSPECIFIED 07/19/2017 GELLENDER DOBORIS Ot M79.89 OTHER SPECIFIED SOFT TISSUE DISORDERS 07/19/2017 GELLENDER DOBORIS Ot R41.82 ALTERED MENTAL STATUS, UNSPECIFIED 07/21/2017 GELLENDER DOBORIS Ot E03.9 HYPOTHYROIDISM, UNSPECIFIED 07/21/2017 GELLENDER DOBORIS Ot E78.5 HYPERLIPIDEMIA, UNSPECIFIED 07/21/2017 GELLENDER DO, BORIS Yuen Ot F02.80 DEMENTIA IN OTH DISEASES CLASSD ELSWHR W 07/21/2017 GELLENDER DO, BORIS Yuen Ot G30.9 ALZHEIMER'S DISEASE, UNSPECIFIED 07/21/2017 GELLENDER DO, BORIS Yuen Ot R60.9 EDEMA, UNSPECIFIED 08/07/2017 GELLENDER DO, BORIS Yuen Ot E86.0 DEHYDRATION 08/07/2017 GELLENDER DO, BORIS Yuen Ot E87.6 HYPOKALEMIA 08/07/2017 GELLENDER DO, BORIS Yuen Ot E87.70 FLUID OVERLOAD, UNSPECIFIED 08/07/2017 GELLENDER DO, BORIS Yuen Ot F02.80 DEMENTIA IN OTH DISEASES CLASSD ELSWHR W 08/07/2017 GELLENDER DO, BORIS Yuen Ot G20 PARKINSON'S DISEASE 08/07/2017 GELLENDER DO, BORIS Yuen Ot G30.9 ALZHEIMER'S DISEASE, UNSPECIFIED 08/07/2017 GELLENDER DO, BORIS Yuen Ot R03.0 ELEVATED BLOOD-PRESSURE READING, W/O LIZZY 08/07/2017 GELLENDER DO, BORIS Yuen Ot R19.7 DIARRHEA, UNSPECIFIED 08/07/2017 GELLENDER DO, BORIS Yuen Ot R32 UNSPECIFIED URINARY INCONTINENCE 08/07/2017 GELLENDER DO, BORIS Yuen Ot E86.0 DEHYDRATION 08/07/2017 GELLENDER DO, BORIS Yuen Ot E87.6 HYPOKALEMIA 08/07/2017 GELLENDER DO, BORIS Yuen Ot E87.70 FLUID OVERLOAD, UNSPECIFIED 08/07/2017 GELLENDER DO, BORIS Yuen Ot F02.80 DEMENTIA IN OTH DISEASES CLASSD ELSR W 08/07/2017 GELLENDER DO, BORIS Yuen Ot G20 PARKINSON'S DISEASE 08/07/2017 GELLENDER DO, BORIS Yuen Ot G30.9 ALZHEIMER'S DISEASE, UNSPECIFIED 08/07/2017 GELLENDER DO, BORIS Yuen Ot R03.0 ELEVATED BLOOD-PRESSURE READING, W/O LIZZY 08/07/2017 GELLENDER DO, BORIS Yuen Ot R19.7 DIARRHEA, UNSPECIFIED 08/07/2017 GELLENDER DO, BORIS Yuen Ot R32 UNSPECIFIED URINARY INCONTINENCE 08/07/2017 GELLENDER DO, BORIS Yuen Ot E86.0 DEHYDRATION 08/07/2017 GELLENDER DO, BORIS A Ot E87.6 HYPOKALEMIA 08/07/2017 GELLENDER DO, BORIS A Ot E87.70 FLUID OVERLOAD, UNSPECIFIED 08/07/2017 GELLENDER DO, BORIS Yuen Ot F02.80 DEMENTIA IN OTH DISEASES CLASSD ELSWHR W 08/07/2017 GELLENDER DO, BORIS Yuen Ot G20 PARKINSON'S DISEASE 08/07/2017 GELLENDER DO, BORIS Alpa Ot G30.9 ALZHEIMER'S DISEASE, UNSPECIFIED 08/07/2017 GELLENDER DO, BORIS A Ot R03.0 ELEVATED BLOOD-PRESSURE READING, W/O LIZZY 08/07/2017 GELLENDER DO, BORIS Yuen Ot R19.7 DIARRHEA, UNSPECIFIED 08/07/2017 GELLENDER DO, BORIS Yuen Ot R32 UNSPECIFIED URINARY INCONTINENCE 08/07/2017 GELLENDER DO, BORIS Yuen Ot E86.0 DEHYDRATION 08/07/2017 GELLENDER DO, BORIS Yuen Ot E87.6 HYPOKALEMIA 08/07/2017 GELLENDER DO, BORIS Yuen Ot E87.70 FLUID OVERLOAD, UNSPECIFIED 08/07/2017 GELLENDER DO, BORIS Yuen Ot F02.80 DEMENTIA IN OTH DISEASES CLASSD ELSWHR W 08/07/2017 GELLENDER DO, BORIS Alpa Ot G20 PARKINSON'S DISEASE 08/07/2017 GELLENDER DO, BORIS Yuen Ot G30.9 ALZHEIMER'S DISEASE, UNSPECIFIED 08/07/2017 GELLENDER DO, BORIS Yuen Ot R03.0 ELEVATED BLOOD-PRESSURE READING, W/O LIZZY 08/07/2017 GELLENDER DO, BORIS Yuen Ot R19.7 DIARRHEA, UNSPECIFIED 08/07/2017 GELLENDER DO, BORIS Yuen Ot R32 UNSPECIFIED URINARY INCONTINENCE 08/07/2017 GELLENDER DO, BORIS Yuen Ot E86.0 DEHYDRATION 08/07/2017 GELLENDER DO, BORIS A Ot E87.6 HYPOKALEMIA 08/07/2017 GELLENDER DO, BORIS Yuen Ot E87.70 FLUID OVERLOAD, UNSPECIFIED 08/07/2017 GELLENDER DO, BORIS Yuen Ot F02.80 DEMENTIA IN OTH DISEASES CLASSD ELSWHR W 08/07/2017 GELLENDER DO, BORIS Alpa Ot G20 PARKINSON'S DISEASE 08/07/2017 GELLENDER DO, BORIS A Ot G30.9 ALZHEIMER'S DISEASE, UNSPECIFIED 08/07/2017 GELLENDER DO, BORIS Alpa Ot R03.0 ELEVATED BLOOD-PRESSURE READING, W/O LIZZY 08/07/2017 GELLENDER DO, BORIS Alpa Ot R19.7 DIARRHEA, UNSPECIFIED 08/07/2017 GELLENDER DO, BORIS Yuen Ot R32 UNSPECIFIED URINARY INCONTINENCE 08/08/2017 GELLENDER DO, BORIS Yuen Ot E86.0 DEHYDRATION 08/08/2017 GELLENDER DO, BORIS Yuen Ot E87.6 HYPOKALEMIA 08/08/2017 GELLENDER DO, BORIS Yuen Ot E87.70 FLUID OVERLOAD, UNSPECIFIED 08/08/2017 GELLENDER DO, BORIS Yuen Ot F02.80 DEMENTIA IN OTH DISEASES CLASSD ELSR W 08/08/2017 GELLENDER DO, BORIS Yuen Ot G20 PARKINSON'S DISEASE 08/08/2017 GELLENDER DO, BORIS Yuen Ot G30.9 ALZHEIMER'S DISEASE, UNSPECIFIED 08/08/2017 GELLENDER DO, BORIS Yuen Ot R03.0 ELEVATED BLOOD-PRESSURE READING, W/O LIZZY 08/08/2017 GELLENDER DO, BORIS Yuen Ot R19.7 DIARRHEA, UNSPECIFIED 08/08/2017 GELLENDER DO, BORIS Yuen Ot R32 UNSPECIFIED URINARY INCONTINENCE 08/08/2017 GELLENDER DO, BORIS Yuen Ot E87.6 HYPOKALEMIA 08/08/2017 GELLENDER DO, BORIS Yuen Ot E86.0 DEHYDRATION 08/08/2017 GELLENDER DO, BORIS Yuen Ot E87.6 HYPOKALEMIA 08/08/2017 GELLENDER DO, BORIS Yuen Ot E87.70 FLUID OVERLOAD, UNSPECIFIED 08/08/2017 GELLENDER DO, BORIS Yuen Ot F02.80 DEMENTIA IN OTH DISEASES CLASSD ELSWHR W 08/08/2017 GELLENDER DO, BORIS Alpa Ot G20 PARKINSON'S DISEASE 08/08/2017 GELLENDER DO, BORIS Yuen Ot G30.9 ALZHEIMER'S DISEASE, UNSPECIFIED 08/08/2017 GELLENDER DO, BORIS Yuen Ot R03.0 ELEVATED BLOOD-PRESSURE READING, W/O LIZZY 08/08/2017 GELLENDER DO, BORIS Yuen Ot R19.7 DIARRHEA, UNSPECIFIED 08/08/2017 GELLENDER DO, BORIS Yuen Ot R32 UNSPECIFIED URINARY INCONTINENCE 08/11/2017 GELLENDER DO, BORIS Yuen Ot E86.0 DEHYDRATION 08/11/2017 GELLENDER DO, BORIS Yuen Ot E87.6 HYPOKALEMIA 08/11/2017 GELLENDER DO, BORIS Alpa Ot E87.70 FLUID OVERLOAD, UNSPECIFIED 08/11/2017 GELLENDER DO, BORIS Yuen Ot F02.80 DEMENTIA IN OTH DISEASES CLASSD ELSWHR W 08/11/2017 GELLENDER DO, BORIS Alpa Ot G20 PARKINSON'S DISEASE 08/11/2017 GELLENDER DO, BORIS Alpa Ot G30.9 ALZHEIMER'S DISEASE, UNSPECIFIED 08/11/2017 GELLENDER DO, BORIS Alpa Ot I10 ESSENTIAL (PRIMARY) HYPERTENSION 08/11/2017 GELLENDER DO, BORIS Alpa Ot R19.7 DIARRHEA, UNSPECIFIED 08/11/2017 GELLENDER DO, BORIS Alpa Ot R32 UNSPECIFIED URINARY INCONTINENCE 08/24/2017 GELLENDER DO, BORIS Alpa Ot E87.6 HYPOKALEMIA 08/25/2017 GELLENDER DO, BORIS Alpa Ot E87.6 HYPOKALEMIA 08/30/2017 GELLENDER DO, BORIS Alpa Ot E87.6 HYPOKALEMIA 09/05/2017 GELLENDER DO, BORIS Yuen Ot E87.6 HYPOKALEMIA 09/22/2017 GELLENDER DO, BORIS Yuen Ot E87.6 HYPOKALEMIA 09/28/2017 GELLENDER DO, BORIS Yuen Ot E87.6 HYPOKALEMIA 10/18/2017 GELLENDER DO, BORIS Yuen Ot E87.6 HYPOKALEMIA 10/18/2017 GELLENDER DO, BORIS Alpa Ot M10.9 GOUT, UNSPECIFIED 11/09/2017 GELLENDER DO, BORIS Alpa Ot S89.91XA UNSPECIFIED INJURY OF RIGHT LOWER LEG, I 11/09/2017 GELLENDER DO, BORIS Yuen Ot W05.0XXA FALL FROM NON-MOVING WHEELCHAIR, INITIAL 11/20/2017 GELLENDER DO, BORIS Yuen Ot M25.461 EFFUSION, RIGHT KNEE 11/29/2017 GELLENDER DO, BORIS Alpa Ot S89.91XA UNSPECIFIED INJURY OF RIGHT LOWER LEG, I 11/29/2017 GELLENDER DO, BORIS Alpa Ot W05.0XXA FALL FROM NON-MOVING WHEELCHAIR, INITIAL 12/01/2017 DOLORES CRANDALL APRN Ot G20 PARKINSON'S DISEASE 12/01/2017 MORENA CRANDALLEthan Mabry PULMONARY FUNCTION TECHNOLOGIST Ot L89.611 PRESSURE ULCER OF RIGHT HEEL, STAGE 1 12/01/2017 RAZMORENAEthan Mabry PULMONARY FUNCTION TECHNOLOGIST Ot L89.621 PRESSURE ULCER OF LEFT HEEL, STAGE 1 12/01/2017 DOLORES CRANDALL PULMONARY FUNCTION TECHNOLOGIST Ot 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 12/04/2017 DOLORES CRANDALL PULMONARY FUNCTION TECHNOLOGIST Ot G20 PARKINSON'S DISEASE 12/04/2017 DOLORES CRANDALL PULMONARY FUNCTION TECHNOLOGIST Ot L89.611 PRESSURE ULCER OF RIGHT HEEL, STAGE 1 12/04/2017 DOLORES CRANDALL PULMONARY FUNCTION TECHNOLOGIST Ot L89.621 PRESSURE ULCER OF LEFT HEEL, STAGE 1 12/04/2017 DOLORES CRANDALL PULMONARY FUNCTION TECHNOLOGIST Ot 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 12/11/2017 BORIS KING DO Ot M25.461 EFFUSION, RIGHT KNEE 12/21/2017 DOLORES CRANDALL PULMONARY FUNCTION TECHNOLOGIST Ot G20 PARKINSON'S DISEASE 12/21/2017 DOLORES CRANDALL PULMONARY FUNCTION TECHNOLOGIST Ot L89.611 PRESSURE ULCER OF RIGHT HEEL, STAGE 1 12/21/2017 DOLORES CRANDALL PULMONARY FUNCTION TECHNOLOGIST Ot L89.621 PRESSURE ULCER OF LEFT HEEL, STAGE 1 12/21/2017 RAZ DOLORES R PULMONARY FUNCTION TECHNOLOGIST Ot 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 Procedures Code Description Performed By Performed On [id number] INSPECTION OF LOWER INTESTINAL TRACT, EN 08/08/2017 [id number] INSPECTION OF LOWER INTESTINAL TRACT, EN 08/10/2017 Results Test Result Range Automated blood complete [...] protein measurement (mass/volume) 0.58 mg /dL 0.00-0.50 THYROID STIMULATING HORMONE - 08/03/17 05:40 THYROID STIMULATING HORMONE 2.21 u[iU]/mL 0.35-4.94 Blood lactic acid measurement (moles/volume) - 08/03/17 08:42 Blood lactic acid measurement (moles/volume) 1.57 mmol/L 0.50-2.00 C DIFFICILE AG + TOXIN A/B. - 08/03/17 14:30 RESULTS NEGATIVE FOR ANTIGEN AND TOXIN A/B NRG Stool occult blood screen - 08/03/17 14:30 Stool gastrointestinal hemoglobin detection NEGATIVE NEGATIVE Stool bacteria identification by culture - 08/03/17 14:30 NOT CULTURED VIBRIOTYERS VIBRIO AND YERSINIA NOT ROUTINELY CULTURED FOR IN THIS LAB NRG NEGATIVE FOR 0157 NEGATIVE FOR E COLI 0157 NRG NEGATIVE FOR CAMPY NEGATIVE FOR CAMPYLOBACTER NRG NEGATIVE FOR SHIGELLA NEGATIVE FOR SHIGELLA NRG NEGATIVE FOR SALMONELLA NEGATIVE FOR SALMONELLA NRG [id number] - 08/03/17 14:30 [id number] Specimen held 5 days if further workup is needed. NRG Complete blood count (CBC) with automated white blood cell (WBC) differential - 08/04/17 07:20 Blood leukocytes automated count (number/volume) 4.7 10*3/uL 4.3-11.0 Blood erythrocytes automated count (number/volume) 4.22 10*6/uL 4.35-5.85 Venous blood hemoglobin measurement (mass/volume) 10.9 g/dL 13.3-17.7 Blood hematocrit (volume fraction) 35 % 40-54 Automated erythrocyte mean corpuscular volume 83 [foz_us] 80-99 Automated erythrocyte mean corpuscular hemoglobin (mass per erythrocyte) 26 pg 25-34 Automated erythrocyte mean corpuscular hemoglobin concentration measurement ( mass/volume) 31 g/dL 32-36 Automated erythrocyte distribution width ratio 15.8 % 10.0-14.5 Automated blood platelet count (count/volume) 150 10*3/uL 130-400 Automated blood platelet mean volume measurement 12.1 [foz_us] 7.4-10.4 Automated blood neutrophils/100 leukocytes 70 % 42-75 Automated blood lymphocytes/100 leukocytes 21 % 12-44 Blood monocytes/100 leukocytes 8 % 0-12 Automated blood eosinophils/100 leukocytes 1 % 0-10 Automated blood basophils/100 leukocytes 0 % 0-10 Blood neutrophils automated count (number/volume) 3.2 10*3 1.8-7.8 Blood lymphocytes automated count (number/volume) 1.0 10*3 1.0-4.0 Blood monocytes automated count (number/volume) 0.4 10*3 0.0-1.0 Automated eosinophil count 0.0 10*3/uL 0.0-0.3 Automated blood basophil count (count/volume) 0.0 10*3/uL 0.0-0.1 Comprehensive metabolic panel - 08/04/17 07:20 Serum or plasma sodium measurement (moles/volume) 152 mmol/L 135-145 Serum or plasma potassium measurement (moles/volume) 2.6 mmol/L 3.6-5.0 Serum or plasma chloride measurement (moles/volume) 109 mmol/L 98-107 Carbon dioxide 30 mmol/L 21-32 Serum or plasma anion gap determination (moles/volume) 13 mmol/L 5-14 Serum or plasma urea nitrogen measurement (mass/volume) 3 mg/dL 7-18 Serum or plasma creatinine measurement (mass/volume) 0.74 mg/dL 0.60-1.30 Serum or plasma urea nitrogen/creatinine mass ratio 4 NRG Serum or plasma creatinine measurement with calculation of estimated glomerular filtration rate > NRG Serum or plasma glucose measurement (mass/volume) 96 mg/dL 70-105 Serum or plasma calcium measurement (mass/volume) 8.1 mg/dL 8.5-10.1 Serum or plasma total bilirubin measurement (mass/volume) 0.5 mg/dL 0.1-1.0 Serum or plasma alkaline phosphatase measurement (enzymatic activity/volume) 36 U/L 40-136 Serum or plasma aspartate aminotransferase measurement (enzymatic activity/ volume) 51 U/L 5-34 Serum or plasma alanine aminotransferase measurement (enzymatic activity/volume ) 33 U/L 0-55 Serum or plasma protein measurement (mass/volume) 5.7 g/dL 6.4-8.2 Serum or plasma albumin measurement (mass/volume) 3.4 g/dL 3.2-4.5 Complete urinalysis with reflex to culture - 08/04/17 08:35 Urine color determination YELLOW NRG Urine clarity determination CLEAR NRG Urine pH measurement by test strip 8 5-9 Specific gravity of urine by test strip 1.010 1.016- 1.022 Urine protein assay by test strip, semi-quantitative NEGATIVE NEGATIVE Urine glucose detection by automated test strip NEGATIVE NEGATIVE Erythrocytes detection in urine sediment by light microscopy NEGATIVE NEGATIVE Urine ketones detection by automated test strip NEGATIVE NEGATIVE Urine nitrite detection by test strip NEGATIVE NEGATIVE Urine total bilirubin detection by test strip NEGATIVE NEGATIVE Urine urobilinogen measurement by automated test strip (mass/volume) NORMAL NORMAL Urine leukocyte esterase detection by dipstick NEGATIVE NEGATIVE Automated urine sediment erythrocyte count by microscopy (number/high power field) NONE NRG Automated urine sediment leukocyte count by microscopy (number/high power field ) NONE NRG Bacteria detection in urine sediment by light microscopy NEGATIVE NRG Squamous epithelial cells detection in urine sediment by light microscopy NONE NRG Crystals detection in urine sediment by light microscopy NONE NRG Casts detection in urine sediment by light microscopy NONE NRG Mucus detection in urine sediment by light microscopy NEGATIVE NRG Complete urinalysis with reflex to culture NO NRG Whole blood basic metabolic panel - 08/04/17 10:50 Serum or plasma sodium measurement (moles/volume) 148 mmol/L 135-145 Serum or plasma potassium measurement (moles/volume) 2.7 mmol/L 3.6-5.0 Serum or plasma chloride measurement (moles/volume) 109 mmol/L 98-107 Carbon dioxide 27 mmol/L 21-32 Serum or plasma anion gap determination (moles/volume) 12 mmol/L 5-14 Serum or plasma urea nitrogen measurement (mass/volume) 3 mg/dL 7-18 Serum or plasma creatinine measurement (mass/volume) 0.82 mg/dL 0.60-1.30 Serum or plasma urea nitrogen/creatinine mass ratio 4 NRG Serum or plasma creatinine measurement with calculation of estimated glomerular filtration rate > NRG Serum or plasma glucose measurement (mass/volume) 232 mg/dL 70-105 Serum or plasma calcium measurement (mass/volume) 8.2 mg/dL 8.5-10.1 Whole blood basic metabolic panel - 08/06/17 10:52 Serum or plasma sodium measurement (moles/volume) 142 mmol/L 135-145 Serum or plasma potassium measurement (moles/volume) 2.3 mmol/L 3.6-5.0 Serum or plasma chloride measurement (moles/volume) 102 mmol/L 98-107 Carbon dioxide 26 mmol/L -32 Serum or plasma anion gap determination (moles/volume) 14 mmol/L 5-14 Serum or plasma urea nitrogen measurement (mass/volume) 2 mg/dL 7-18 Serum or plasma creatinine measurement (mass/volume) 0.78 mg/dL 0.60-1.30 Serum or plasma urea nitrogen/creatinine mass ratio 3 NRG Serum or plasma creatinine measurement with calculation of estimated glomerular filtration rate > NRG Serum or plasma glucose measurement (mass/volume) 130 mg/dL 70-105 Serum or plasma calcium measurement (mass/volume) 8.5 mg/dL 8.5-10.1 Whole blood basic metabolic panel - 08/07/17 08:05 Serum or plasma sodium measurement (moles/volume) 140 mmol/L 135-145 Serum or plasma potassium measurement (moles/volume) 2.6 mmol/L 3.6-5.0 Serum or plasma chloride measurement (moles/volume) 102 mmol/L 98-107 Carbon dioxide 31 mmol/L 21-32 Serum or plasma anion gap determination (moles/volume) 7 mmol/L 5-14 Serum or plasma urea nitrogen measurement (mass/volume) 3 mg/dL 7-18 Serum or plasma creatinine measurement (mass/volume) 0.73 mg/dL 0.60-1.30 Serum or plasma urea nitrogen/creatinine mass ratio 4 NRG Serum or plasma creatinine measurement with calculation of estimated glomerular filtration rate > NRG Serum or plasma glucose measurement (mass/volume) 92 mg/dL 70-105 Serum or plasma calcium measurement (mass/volume) 8.5 mg/dL 8.5-10.1 Serum or plasma potassium measurement (moles/volume) - 08/07/17 13:49 Serum or plasma potassium measurement (moles/volume) 3.1 mmol/L 3.6-5.0 Whole blood basic metabolic panel - 08/08/17 05:31 Serum or plasma sodium measurement (moles/volume) 142 mmol/L 135-145 Serum or plasma potassium measurement (moles/volume) 3.1 mmol/L 3.6-5.0 Serum or plasma chloride measurement (moles/volume) 106 mmol/L 98-107 Carbon dioxide 24 mmol/L 21-32 Serum or plasma anion gap determination (moles/volume) 12 mmol/L 5-14 Serum or plasma urea nitrogen measurement (mass/volume) 3 mg/dL 7-18 Serum or plasma creatinine measurement (mass/volume) 0.75 mg/dL 0.60-1.30 Serum or plasma urea nitrogen/creatinine mass ratio 4 NRG Serum or plasma creatinine measurement with calculation of estimated glomerular filtration rate > NRG Serum or plasma glucose measurement (mass/volume) 79 mg/dL 70-105 Serum or plasma calcium measurement (mass/volume) 8.6 mg/dL 8.5-10.1 Whole blood basic metabolic panel - 08/08/17 12:15 Serum or plasma sodium measurement (moles/volume) 142 mmol/L 135-145 Serum or plasma potassium measurement (moles/volume) 3.6 mmol/L 3.6-5.0 Serum or plasma chloride measurement (moles/volume) 105 mmol/L 98-107 Carbon dioxide 24 mmol/L 21-32 Serum or plasma anion gap determination (moles/volume) 13 mmol/L 5-14 Serum or plasma urea nitrogen measurement (mass/volume) 3 mg/dL 7-18 Serum or plasma creatinine measurement (mass/volume) 0.73 mg/dL 0.60-1.30 Serum or plasma urea nitrogen/creatinine mass ratio 4 NRG Serum or plasma creatinine measurement with calculation of estimated glomerular filtration rate > NRG Serum or plasma glucose measurement (mass/volume) 78 mg/dL 70-105 Serum or plasma calcium measurement (mass/volume) 8.8 mg/dL 8.5-10.1 Automated blood complete blood count (hemogram) panel - 08/09/17 06:15 Blood leukocytes automated count (number/volume) 4.8 10*3/uL 4.3-11.0 Blood erythrocytes automated count (number/volume) 4.02 10*6/uL 4.35-5.85 Venous blood hemoglobin measurement (mass/volume) 10.5 g/dL 13.3-17.7 Blood hematocrit (volume fraction) 33 % 40-54 Automated erythrocyte mean corpuscular volume 82 [foz_us] 80-99 Automated erythrocyte mean corpuscular hemoglobin (mass per erythrocyte) 26 pg 25-34 Automated erythrocyte mean corpuscular hemoglobin concentration measurement ( mass/volume) 32 g/dL 32-36 Automated erythrocyte distribution width ratio 16.1 % 10.0-14.5 Automated blood platelet count (count/volume) 173 10*3/uL 130-400 Automated blood platelet mean volume measurement 12.1 [foz_us] 7.4-10.4 Whole blood basic metabolic panel - 08/09/17 06:15 Serum or plasma sodium measurement (moles/volume) 145 mmol/L 135-145 Serum or plasma potassium measurement (moles/volume) 3.2 mmol/L 3.6-5.0 Serum or plasma chloride measurement (moles/volume) 108 mmol/L 98-107 Carbon dioxide 30 mmol/L 21-32 Serum or plasma anion gap determination (moles/volume) 7 mmol/L 5-14 Serum or plasma urea nitrogen measurement (mass/volume) 2 mg/dL 7-18 Serum or plasma creatinine measurement (mass/volume) 0.72 mg/dL 0.60-1.30 Serum or plasma urea nitrogen/creatinine mass ratio 3 NRG Serum or plasma creatinine measurement with calculation of estimated glomerular filtration rate > NRG Serum or plasma glucose measurement (mass/volume) 91 mg/dL 70-105 Serum or plasma calcium measurement (mass/volume) 8.4 mg/dL 8.5-10.1 Magnesium - 08/09/17 06:15 Magnesium 2.4 mg/dL 1.8-2.4 Serum or plasma potassium measurement (moles/volume) - 08/09/17 19:45 Serum or plasma potassium measurement (moles/volume) 3.2 mmol/L 3.6-5.0 Serum or plasma potassium measurement (moles/volume) - 08/10/17 11:50 Serum or plasma potassium measurement (moles/volume) 3.4 mmol/L 3.6-5.0 Automated blood complete blood count (hemogram) panel - 08/11/17 06:50 Blood leukocytes automated count (number/volume) 5.2 10*3/uL 4.3-11.0 Blood erythrocytes automated count (number/volume) 3.66 10*6/uL 4.35-5.85 Venous blood hemoglobin measurement (mass/volume) 9.7 g/dL 13.3-17.7 Blood hematocrit (volume fraction) 30 % 40-54 Automated erythrocyte mean corpuscular volume 82 [foz_us] 80-99 Automated erythrocyte mean corpuscular hemoglobin (mass per erythrocyte) 27 pg 25-34 Automated erythrocyte mean corpuscular hemoglobin concentration measurement ( mass/volume) 32 g/dL 32-36 Automated erythrocyte distribution width ratio 16.1 % 10.0-14.5 Automated blood platelet count (count/volume) 159 10*3/uL 130-400 Automated blood platelet mean volume measurement 10.8 [foz_us] 7.4-10.4 Whole blood basic metabolic panel - 08/11/17 06:50 Serum or plasma sodium measurement (moles/volume) 143 mmol/L 135-145 Serum or plasma potassium measurement (moles/volume) 3.1 mmol/L 3.6-5.0 Serum or plasma chloride measurement (moles/volume) 109 mmol/L 98-107 Carbon dioxide 26 mmol/L 21-32 Serum or plasma anion gap determination (moles/volume) 8 mmol/L 5-14 Serum or plasma urea nitrogen measurement (mass/volume) 3 mg/dL 7-18 Serum or plasma creatinine measurement (mass/volume) 0.69 mg/dL 0.60-1.30 Serum or plasma urea nitrogen/creatinine mass ratio 4 NRG Serum or plasma creatinine measurement with calculation of estimated glomerular filtration rate > NRG Serum or plasma glucose measurement (mass/volume) 97 mg/dL 70-105 Serum or plasma calcium measurement (mass/volume) 8.5 mg/dL 8.5-10.1 Whole blood basic metabolic panel - 08/21/17 11:50 Serum or plasma sodium measurement (moles/volume) 141 mmol/L 135-145 Serum or plasma potassium measurement (moles/volume) 2.4 mmol/L 3.6-5.0 Serum or plasma chloride measurement (moles/volume) 101 mmol/L 98-107 Carbon dioxide 31 mmol/L - Serum or plasma anion gap determination (moles/volume) 9 mmol/L -14 Serum or plasma urea nitrogen measurement (mass/volume) 9 mg/dL 7-18 Serum or plasma creatinine measurement (mass/volume) 0.93 mg/dL 0.60-1.30 Serum or plasma urea nitrogen/creatinine mass ratio 10 NRG Serum or plasma creatinine measurement with calculation of estimated glomerular filtration rate > NRG Serum or plasma glucose measurement (mass/volume) 149 mg/dL 70-105 Serum or plasma calcium measurement (mass/volume) 9.5 mg/dL 8.5-10.1 Whole blood basic metabolic panel - 08/29/17 09:15 Serum or plasma sodium measurement (moles/volume) 138 mmol/L 135-145 Serum or plasma potassium measurement (moles/volume) 3.4 mmol/L 3.6-5.0 Serum or plasma chloride measurement (moles/volume) 104 mmol/L 98-107 Carbon dioxide 28 mmol/L -32 Serum or plasma anion gap determination (moles/volume) 6 mmol/L 5-14 Serum or plasma urea nitrogen measurement (mass/volume) 9 mg/dL -18 Serum or plasma creatinine measurement (mass/volume) 0.74 mg/dL 0.60-1.30 Serum or plasma urea nitrogen/creatinine mass ratio 12 NRG Serum or plasma creatinine measurement with calculation of estimated glomerular filtration rate > NRG Serum or plasma glucose measurement (mass/volume) 90 mg/dL 70-105 Serum or plasma calcium measurement (mass/volume) 9.0 mg/dL 8.5-10.1 Whole blood basic metabolic panel - 09/04/17 13:20 Serum or plasma sodium measurement (moles/volume) 141 mmol/L 135-145 Serum or plasma potassium measurement (moles/volume) 2.9 mmol/L 3.6-5.0 Serum or plasma chloride measurement (moles/volume) 107 mmol/L 98-107 Carbon dioxide 27 mmol/L 21-32 Serum or plasma anion gap determination (moles/volume) 7 mmol/L 5-14 Serum or plasma urea nitrogen measurement (mass/volume) 9 mg/dL 7-18 Serum or plasma creatinine measurement (mass/volume) 0.80 mg/dL 0.60-1.30 Serum or plasma urea nitrogen/creatinine mass ratio 11 NRG Serum or plasma creatinine measurement with calculation of estimated glomerular filtration rate > NRG Serum or plasma glucose measurement (mass/volume) 99 mg/dL 70-105 Serum or plasma calcium measurement (mass/volume) 9.4 mg/dL 8.5-10.1 Whole blood basic metabolic panel - 09/26/17 12:35 Serum or plasma sodium measurement (moles/volume) 142 mmol/L 135-145 Serum or plasma potassium measurement (moles/volume) 2.6 mmol/L 3.6-5.0 Serum or plasma chloride measurement (moles/volume) 102 mmol/L 98-107 Carbon dioxide 27 mmol/L -32 Serum or plasma anion gap determination (moles/volume) 13 mmol/L 5-14 Serum or plasma urea nitrogen measurement (mass/volume) 12 mg/dL 7-18 Serum or plasma creatinine measurement (mass/volume) 0.77 mg/dL 0.60-1.30 Serum or plasma urea nitrogen/creatinine mass ratio 16 NRG Serum or plasma creatinine measurement with calculation of estimated glomerular filtration rate > NRG Serum or plasma glucose measurement (mass/volume) 72 mg/dL 70-105 Serum or plasma calcium measurement (mass/volume) 9.9 mg/dL 8.5-10.1 Serum or plasma uric acid measurement (mass/volume) - 09/26/17 12:35 Serum or plasma uric acid measurement (mass/volume) 6.6 mg/dL 2.6-7.2 Encounters ACCT No. Visit Date/Time Discharge Status Pt. Type Provider Facility Loc./Unit Complaint [id number] 11/30/2017 09:17:00 11/30/2017 23:59:59 CLS Outpatient DOLORES CRANDALL KATERIN [facility] WOUNDCARE [id number] 11/17/2017 12:07:00 11/17/2017 23:59:59 CLS Outpatient KELLYBORIS EMERY DO [facility] RAD RIGHT KNEE PAIN [id number] 11/08/2017 10:43:00 11/08/2017 23:59:59 CLS Outpatient BORIS KING DO [facility] RAD FALL [id number] 09/26/2017 12:05:00 09/26/2017 23:59:59 CLS Outpatient BORIS KING DO [facility] RAD GOUT, RIGHT FOOT AND ANKLE PAIN [id number] 09/04/2017 08:00:00 09/04/2017 23:59:59 CLS Outpatient KELLYBORIS EMERY DO [facility] HYPOKALEMIA [id number] 08/29/2017 08:00:00 08/29/2017 23:59:59 CLS Outpatient BORIS KING DO [facility] HYPOKALEMIA [id number] 08/23/2017 08:00:00 08/23/2017 23:59:59 CLS Outpatient BORIS KING DO [facility] HYPOKALEMIA [id number] 08/21/2017 08:00:00 08/21/2017 23:59:59 CLS Outpatient KELLYBORIS EMERY DO [facility] HYPOKALEMIA [id number] 08/03/2017 06:40:00 08/11/2017 15:00:00 DIS Inpatient BORIS KING DO [facility] 4TH HYPOKALEMIA DIARRHEA [id number] 08/02/2017 12:49:00 08/02/2017 23:59:59 CLS Outpatient BORIS KING DO [facility] SDC LOW POTASIUM [id number] 06/26/2017 10:05:00 06/26/2017 23:59:59 CLS Outpatient BORIS KING DO [facility] RAD RIGHT LEG SWELLING, ACUTE MENTAL STATUS CHANGE [id number] 06/12/2017 10:35:00 06/12/2017 23:59:59 CLS Outpatient BORIS KING DO [facility] RAD EDEMA,ALZHIMERS, HYPOTHYROID, [id number] 11/08/2012 08:58:00 11/08/2012 23:59:59 CLS Outpatient BORIS KING DO [facility] RAD LESION IN LIVER [id number] 11/05/2012 08:08:00 11/05/2012 23:59:59 CLS Outpatient LEE CAMARENA, ALLAN [facility] RAD PITUITARY ADENOMA,NAUSEA [id number] 04/26/2018 09:07:00 ACT Emergency DON CAMARENA, KATHRYN Ko [facility] ER UNRESPONSIVE
[2018-04-26 09:35] LABS: BASOPHILS % (AUTO) 0 % (0-10); EOSINOPHILS # (AUTO) 0.1 10^3/uL (0.0-0.3); EOSINOPHILS % (AUTO) 2 % (0-10); HEMATOCRIT 39 % (40-54); HEMOGLOBIN 12.8 G/DL (13.3-17.7); LYMPHOCYTES # (AUTO) 2.2 X 10^3 (1.0-4.0); LYMPHOCYTES % (AUTO) 33 % (12-44); MEAN CORPUSCULAR HEMOGLOBIN 24 PG (25-34); MEAN CORPUSCULAR HGB CONC 33 G/DL (32-36); MEAN CORPUSCULAR VOLUME 74 FL (80-99); MEAN PLATELET VOLUME 12.1 FL (7.4-10.4); MONOCYTES # (AUTO) 0.5 X 10^3 (0.0-1.0); MONOCYTES % (AUTO) 7 % (0-12); NEUTROPHILS # (AUTO) 3.8 X 10^3 (1.8-7.8); NEUTROPHILS % (AUTO) 58 % (42-75); PLATELET COUNT 224 10^3/uL (130-400); RED BLOOD COUNT 5.32 10^6/uL (4.35-5.85); RED CELL DISTRIBUTION WIDTH 16.1 % (10.0-14.5); WHITE BLOOD COUNT 6.7 10^3/uL (4.3-11.0)
[2018-04-26 09:50] LABS: ALANINE AMINOTRANSFERASE 13 U/L (0-55); ALKALINE PHOSPHATASE 74 U/L (40-136); BILIRUBIN,TOTAL 0.7 MG/DL (0.1-1.0); BUN/CREATININE RATIO 11; CALCIUM 9.8 MG/DL (8.5-10.1); CARBON DIOXIDE 22 MMOL/L (21-32); CHLORIDE 103 MMOL/L (98-107); CREATININE SERUM 1.01 MG/DL (0.60-1.30); GFR ESTIMATED > 60; GLUCOSE 166 MG/DL (70-105); POTASSIUM 3.3 MMOL/L (3.6-5.0); SODIUM 139 MMOL/L (135-145)
[2018-04-26 11:30] LABS: BILIRUBIN,URINE NEGATIVE (NEGATIVE); CLARITY,URINE SLIGHTLY CLOUDY; COLOR,URINE YELLOW; GLUCOSE, URINE (UA) NEGATIVE (NEGATIVE); KETONES,URINE NEGATIVE (NEGATIVE); LEUKOCYTE ESTERASE ,URINE 1+ (NEGATIVE); NITRITE,URINE NEGATIVE (NEGATIVE); PH,URINE 7 (5-9); PROTEIN,URINE 3+ (NEGATIVE); UROBILINOGEN,URINE 1 MG/DL (NORMAL)
--- NOTE | 2018-04-26 11:34 | ED General ---
General Chief Complaint: General Problems/Pain Stated Complaint: UNRESPONSIVE Nursing Triage Note: PT BROUGHT IN BY EMS WITH COMPLAINT OF AMS. EMS STATE PT WAS ON TOILET HAVING DIARRHEA, WHEN PTS EYES ROLLED INTO BACK OF HEAD AND PT QUIT RESPONDING. PT IS ALERT AT ARRIVAL TO ER. PT HAS PARKINSON AND ALZHEIMERS. S/O IS AT BEDSIDE WITH PT, STATES PT STARTED HAVING DIARRHEA THIS AM. Nursing Sepsis Screen: No Definite Risk History of Present Illness Date Seen by Provider: Apr 26, 2018 Time Seen by Provider: 11:33 Initial Comments The patient is a 72-year-old black male whose family is known to me. 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 He suffers from Parkinson's disease and dementia. This morning when the family was cleaning up after a loose stool while he sat on the commode he had a syncopal episode. They brought him here because they were alarmed that he was not awakening as quickly as they would have expected. He is now as alert as he usually might Timing/Duration: 4-6 Hours Allergies and Home Medications Allergies Coded Allergies: pineapple (Verified Allergy, Unknown, 08/02/17) Home Medications Cholecalciferol (Vitamin D3) 2,000 Unit Capsule, 2,000 UNIT PO DAILY, (Reported) Donepezil HCl 10 Mg Tablet, 20 MG PO HS, (Reported) TAKES 2 (10MG) TABLETS Levothyroxine Sodium 88 Mcg Tablet, 88 MCG PO DAILY, (Reported) Memantine HCl 28 Mg Cap.spr.24, 28 MG PO HS, (Reported) Potassium Chloride 10 Meq Tab.er.prt, 10 MEQ PO BID Prescribed by: WILIAN GRIFFIN on 08/11/17 1131 Pravastatin Sodium 40 Mg Tablet, 40 MG PO HS, (Reported) Patient Home Medication List Home Medication List Reviewed: Yes Review of Systems Review of Systems Constitutional: see HPI Respiratory: no symptoms reported Cardiovascular: no symptoms reported Gastrointestinal: diarrhea Past Phrxpqp-Ldnykf-Yqoczm Hx Patient Social History Alcohol Use: Denies Use Recreational Drug Use: No Smoking Status: Former Smoker 2nd Hand Smoke Exposure: No Recent Foreign Travel: No Contact w/Someone Who Travel: No Recent Infectious Disease Expo: No Recent Hopitalizations: No Immunizations Up To Date Tetanus Booster (TDap): Unknown PED Vaccines UTD: No Seasonal Allergies Seasonal Allergies: No Past Medical History Surgeries: Yes (VASECTOMY) Vasectomy Respiratory: No Cardiac: No Neurological: Yes Dementia, Parkinson's Disease Reproductive Disorders: No Gastrointestinal: No Musculoskeletal: No Endocrine: Yes Cancer: No Psychosocial: No Integumentary: No Blood Disorders: No Physical Exam Vital Signs Vital Signs - First Documented 04/26/18 09:06 Temp 97.6 Pulse 97 Resp 32 B/P (MAP) 118/76 (90) Pulse Ox 94 O2 Delivery Room Air Capillary Refill : Less Than 3 Seconds Height, Weight, BMI Height: 5'5.00" Weight: 150lbs. 0.0oz. 68.409174cm; 26.9 BMI Method:Stated General Appearance: Other (alert but does not answer questions) Eyes: Bilateral Eye Normal Inspection HEENT: Normal ENT Inspection Respiratory: Chest Non Tender, Lungs Clear, Normal Breath Sounds, No Accessory Muscle Use, No Respiratory Distress Cardiovascular: Regular Rate, Rhythm, No Edema, No Gallop, No JVD, No Murmur, Normal Peripheral Pulses Comments Attempts at passive range of motion of upper and lower extremities shows him to be quite rigid. His belly was quite from without pain to palpation. Progress/Results/Core Measures Suspected Sepsis Recent Fever Within 48 Hours: No Infection Criteria Present: None New/Unexplained Altered Menta: No Sepsis Screen: No Definite Risk SIRS Temperature:97.6 Pulse: 97 Respiratory Rate: 32 Laboratory Tests 04/26/18 09:15: White Blood Count 6.7 Blood Pressure 118 /76 Mean: 90 Laboratory Tests 04/26/18 09:15: Creatinine 1.01, Platelet Count 224, Total Bilirubin 0.7 Results/Orders Lab Results Laboratory Tests Test 04/26/18 09:15 04/26/18 11:20 Range/Units White Blood Count 6.7 4.3-11.0 10^3/uL Red Blood Count 5.32 4.35-5.85 10^6/uL Hemoglobin 12.8 L 13.3-17.7 G/DL Hematocrit 39 L 40-54 % Mean Corpuscular Volume 74 L 80-99 FL Mean Corpuscular Hemoglobin 24 L 25-34 PG Mean Corpuscular Hemoglobin Concent 33 32-36 G/DL Red Cell Distribution Width 16.1 H 10.0-14.5 % Platelet Count 224 130-400 10^3/uL Mean Platelet Volume 12.1 H 7.4-10.4 FL Neutrophils (%) (Auto) 58 42-75 % Lymphocytes (%) (Auto) 33 12-44 % Monocytes (%) (Auto) 7 0-12 % Eosinophils (%) (Auto) 2 0-10 % Basophils (%) (Auto) 0 0-10 % Neutrophils # (Auto) 3.8 1.8-7.8 X 10^3 Lymphocytes # (Auto) 2.2 1.0-4.0 X 10^3 Monocytes # (Auto) 0.5 0.0-1.0 X 10^3 Eosinophils # (Auto) 0.1 0.0-0.3 10^3/uL Basophils # (Auto) 0.0 0.0-0.1 10^3/uL Sodium Level 139 135-145 MMOL/L Potassium Level 3.3 L 3.6-5.0 MMOL/L Chloride Level 103 98-107 MMOL/L Carbon Dioxide Level 22 21-32 MMOL/L Anion Gap 14 5-14 MMOL/L Blood Urea Nitrogen 11 7-18 MG/DL Creatinine 1.01 0.60-1.30 MG/DL Estimat Glomerular Filtration Rate > 60 BUN/Creatinine Ratio 11 Glucose Level 166 H 70-105 MG/DL Calcium Level 9.8 8.5-10.1 MG/DL Corrected Calcium 9.8 8.5-10.1 MG/DL Total Bilirubin 0.7 0.1-1.0 MG/DL Aspartate Amino Transf (AST/SGOT) 16 5-34 U/L Alanine Aminotransferase (ALT/SGPT) 13 0-55 U/L Alkaline Phosphatase 74 40-136 U/L Total Protein 7.0 6.4-8.2 GM/DL Albumin 4.0 3.2-4.5 GM/DL Urine Color YELLOW Urine Clarity SLIGHTLY CLOUDY Urine pH 7 5-9 Urine Specific [place] 1.015 L 1.016-1.022 Urine Protein 3+ H NEGATIVE Urine Glucose (UA) NEGATIVE NEGATIVE Urine Ketones NEGATIVE NEGATIVE Urine Nitrite NEGATIVE NEGATIVE Urine Bilirubin NEGATIVE NEGATIVE Urine Urobilinogen 1 NORMAL MG/DL Urine Leukocyte Esterase 1+ H NEGATIVE Urine RBC (Auto) 5+ H NEGATIVE Urine RBC 10-25 H /HPF Urine WBC RARE /HPF Urine Squamous Epithelial Cells RARE /HPF Urine Crystals NONE /LPF Urine Bacteria NEGATIVE /HPF Urine Casts NONE /LPF Urine Mucus NEGATIVE /LPF Urine Culture Indicated NO My Orders Orders - ODGERS,KATHRYN K MD Cbc With Automated Diff (04/26/18 09:28) Comprehensive Metabolic Panel (04/26/18 09:28) Ua Culture If Indicated (04/26/18 09:28) Abdomen/Kub 1view (04/26/18 11:37) Vital Signs/I&O 04/26/18 09:06 Temp 97.6 Pulse 97 Resp 32 B/P (MAP) 118/76 (90) Pulse Ox 94 O2 Delivery Room Air Capillary Refill : Less Than 3 Seconds Blood Pressure Mean: 90 Departure Impression Primary Impression: vasovagal syncope Disposition: HOME, SELF-CARE Condition: Stable/Unchanged Departure-Patient Inst. Decision time for Depature: 12:01 Referrals: BORIS KING DO (PCP/Family) Primary Care Physician Add. Discharge Instructions: All discharge instructions reviewed with patient and/or family. Voiced understanding. Resume usual activities. Acquire a Dulcolax rectal suppository and insert. KATHRYN OCHOA MD Apr 26, 2018 11:34
[2018-04-26 11:36] LABS: BACTERIA,URINE NEGATIVE /HPF; SQUAMOUS EPITHELIAL CELL,UR RARE /HPF; WBC,URINE RARE /HPF
--- NOTE | 2018-04-26 12:08 | Diagnostic Imaging Report ---
INDICATION: Altered mental status, abdominal pain. COMPARISON: None. DISCUSSION: Two views of the abdomen were obtained. There is marked gaseous distention of the colon with a small amount of stool present. No definite dilated small bowel loops are identified. Findings are nonspecific and could be seen with colonic ileus or distal colonic obstruction. Recommend clinical correlation and radiographic followup is indicated. No osseous abnormality or pathologic calcification. IMPRESSION: 1. Marked gaseous distention of the colon. Dictated by: Dictated on workstation # [id number]
[2018-04-26 13:00] VITALS: BP 118/76
== END 2018-04-26 13:00 | disposition home or self-care (01) ==
LOC: EDUNIT# 09:04 → ER 09:07
DX: R55 Syncope and collapse (principal); G20 Parkinson's disease; R10.9 Unspecified abdominal pain; F03.90 Unspecified dementia, unspecified severity, without behavioral disturbance, psychotic disturbance, mood disturbance, and anxiety; Z87.891 Personal history of nicotine dependence; Z98.52 Vasectomy status
CPT/HCPCS: 36415; 51701; 74018; 80053; 81000; 85025